=== PATIENT | male | born 1945 | race Caucasian/White ===

== ENCOUNTER → 2020-01-13 08:45 | Outpatient (BNVA) | payer OTHER, SELFPAY | PROVIDERS: PCP Internal Medicine; Referring Provider Internal Medicine; Visit Provider Nurse Practitioner Family | DX: Z76.89 Persons encountering health services in other specified circumstances (principal) ==

== ENCOUNTER → 2020-06-11 08:12 | Outpatient (REF) | payer OTHER, SELFPAY ==
--- NOTE | 2020-06-11 08:15 | CA_ITS ---
Transthoracic Echocardiogram Patient (Last, First, Middle): Douglas Amor, Gender: Male Date of : 1945 Age: 74 Procedure Date: 06/11/2020 Procedure Type: Transthoracic Echocardiogram Location: OP Height: 190.5 cm Weight: 106.6 kg BSA: 2.35 m2 Heart Rate: bpm BP: 145 / 86 mmHg Accounting Technician: DORINA Referring MD: Lori Bright TAFFY PULLEROleg Symptoms: I42.9 - Cardiomyopathy, unspecified Study Quality: Technically Difficult ECG Rhythm: Sinus, PVCs Conclusions: - Even with definity, difficult to assess LVEF or wall motion. Suspect LVEF about 50%. - No obvious valvular pathology seen on this study. - There is mild dilatation of the ascending aorta measuring 4.00 cm. Findings Left Ventricle Mildly increased left ventricular cavity size. There is mildly increased left ventricular wall thickness. The left ventricular systolic function is low normal. E/E prime ratio is <8, consistent with normal filling pressures. Evidence suggests grade I (mild) diastolic dysfunction. Even with definity, difficult to assess LVEF or wall motion. Suspect LVEF about 50%. No gross wall motion abnormality. Right Ventricle Normal right ventricular cavity size and systolic function. Atria Both atria are normal in size. Aortic Valve The aortic valve was not well visualized. There is no aortic valve stenosis. There is no aortic valve regurgitation. Mitral Valve The mitral valve appears normal. There is trace mitral valve regurgitation. There is no mitral valve stenosis. Pulmonic Valve The pulmonic valve was not well visualized. Tricuspid Valve There is trace tricuspid valve regurgitation. The pulmonary artery systolic pressure is normal. Great Vessels There is mild dilatation of the ascending aorta measuring 4.00 cm. Venous The inferior vena cava was not well visualized. Pericardium/Pleural There is no evidence of pericardial effusion. Recommendations, Care & Conclusions No obvious valvular pathology seen on this study. Measurements M-Mode Liner Measurements Normals - Women/Men AOV Cusps: 3.00 1.5-2.6 cm/m2 2D Linear Measurements IVSd: 1.08 0.6-0.9/0.6-1.0 cm LVIDd: 5.51 3.9-5.3/4.2-5.9 cm LVIDd Index: 2.34 2.4-3.2/2.2-3.1 cm/m2 LVIDs: 3.92 2.0-3.6 cm LVPWd: 1.05 0.7-1.1 cm Ao Root: 4.00 2.1-3.5 cm LA Diam: 4.30 2.7-3.8/3.0-4.0 cm LAIDs Index: 1.83 1.5-2.3 cm/m2 LV Mass: 289.81 67-162/88-224 g LV Mass Index: 123.32 43-95/49-115 g/m2 LVOT Diam: 2.50 3.0+(-)1.3 cm Mitral Valve MV Pk E: 0.53 MV PK A: 0.62 MV Decel Time: 292.00 E/A: 0.90 E'Lateral: 9.14 E'Medial: 5.98 E/E' Med: 8.80 E/E' Lat: 5.80 PHT: 86.00 MVA PHT: 2.56 Decel [place]: 1.81 Aortic Valve AoV Pk Chidi: 1.65 AoV Pk Grad: 11.00 LVOT LVOT Pk Chidi: 0.63 LVOT Mn Chidi: 0.47 LVOT VTI: 0.16 LVOT Pk Grad: 2.00 LVOT Mn Grad: 1.00 LVOT Diam: 2.50 LVOT Area: 4.91 Diastolic Function MV Pk E: 0.53 MV Pk A: 0.62 E/A: 0.90 E'Medial: 5.98 E/E' Med: 8.80 E' Laterial: 9.14 E/E' Lat: 5.80 Tricuspid Valve RA Press: 3.00 Great Vessels Aorta Ao Root-2D: 4.00 2.0-3.7 cm Ao Asc: 4.00 2.1-3.4 cm Ao Arch: 3.60 Pulmonary Valve PV Pk Chidi: 1.37 Peak PV Grad: 8.00 Updated in Other Vendor System with Status of Final Keegan Harris MD electronically signed on 06/13/2020 12:04:03 PM with status of Final
== END ==
LOC: HO.CARD 08:12
PROVIDERS: Visit Provider Nurse Practitioner Family
DX: I42.9 Cardiomyopathy, unspecified (principal)
CPT/HCPCS: 93306; Q9957

== ENCOUNTER 2020-08-04 08:52 | Outpatient (REF) | payer OTHER, SELFPAY ==
--- NOTE | ~2020-08-04 | XR_ITS ---
EXAMINATION: XR CHEST CLINICAL INFORMATION: Dyspnea COMPARISON: Previous chest x-ray October 2018 TECHNIQUE: 2 views of the chest were obtained. FINDINGS: The cardiac and mediastinal contours are stable. The lung volumes are low. The lungs are clear. There is no pleural effusion or pneumothorax. There are degenerative changes of the thoracic spine and increased kyphosis. XR/XR chest 2V IMPRESSION: No evidence for acute disease in the chest.
== END 2020-08-04 08:53 | disposition home or self-care (01) ==
LOC: HO.XRAY 08:52
PROVIDERS: PCP Internal Medicine; Visit Provider Hospitalist
DX: J41.0 Simple chronic bronchitis (principal); I48.91 Unspecified atrial fibrillation; I42.9 Cardiomyopathy, unspecified
CPT/HCPCS: 71046

== ENCOUNTER → 2020-08-11 09:28 | Outpatient (BNVA) | payer OTHER, SELFPAY | PROVIDERS: PCP Internal Medicine; Visit Provider Internal Medicine Cardiovascular Disease | DX: I42.9 Cardiomyopathy, unspecified (principal); I48.0 Paroxysmal atrial fibrillation | CPT/HCPCS: 93005 ==

== ENCOUNTER 2020-08-13 10:12 | Outpatient (REF) | payer OTHER, SELFPAY | END 2020-08-13 10:13 | disposition home or self-care (01) | LOC: HO.RESP 10:12 | PROVIDERS: PCP Internal Medicine; Visit Provider Hospitalist | DX: R06.00 Dyspnea, unspecified (principal) | CPT/HCPCS: 94060; 94727; 94729 ==

== ENCOUNTER 2020-09-17 09:38 | Outpatient (REF) | payer OTHER, SELFPAY ==
[2020-09-17 11:32] LABS: MANUAL DIFF FLAG NO
[2020-09-17 11:37] LABS: Basophils Percent Auto 0.5 % (0-2); Eosinophils Absolute Auto 0.1 X10*3/uL (0.0-0.4); Eosinophils Percent Auto 1.5 % (0-4); Hematocrit 45.1 % (42-52); Hemoglobin 14.7 g/dl (14.0-18.0); Imm Gran Abs Auto 0.03 X10*3/uL (0.00-0.03); Imm Gran Pct Auto 0.3 % (0.0-0.4); Lymphocytes Absolute Auto 2.5 X10*3/uL (1.2-4.9); Mean Corpuscular HGB Conc 32.6 g/dl (31.0-36.0); Mean Corpuscular Hemoglobin 32.3 pg (27.0-33.0); Mean Corpuscular Volume 99.1 fL (80-98); Mean Platelet Volume 11.6 fL (9.4-12.4); Monocytes Absolute Auto 0.8 X10*3/uL (0.1-1.2); Monocytes Percent Auto 9.8 % (2-11); Neutrophils Absolute Auto 5.1 X10*3/uL (2.0-8.3); Neutrophils Percent Auto 58.9 % (45-73); Platelet Count 200 X10*3/uL (160-400); Red Blood Count 4.55 X10*6/uL (4.60-5.80); Red Cell Distribution Width 13.3 % (11.0-16.0); White Blood Count 8.6 X10*3/uL (4.8-10.8)
[2020-09-17 12:32] LABS: Alanine Aminotransferase 18 U/L (0-40); Albumin Level 4.1 g/dL (3.5-5.0); Alkaline Phosphatase 94 U/L (39-117); Anion Gap 11 (12-20); Aspartate Amino Transferase 17 U/L (5-37); Bilirubin Direct 0.2 mg/dL (0.0-0.5); Bilirubin Total 0.5 mg/dL (0.0-1.0); Blood Urea Nitrogen 21 mg/dL (9-16); Calcium 10.3 mg/dL (8.4-10.2); Carbon Dioxide 25 mmol/L (22-29); Chloride 107 mmol/L (96-108); Cholesterol 150 mg/dL; Estimated Glomerular Filt Rate 56; Glucose Random 93 mg/dL (60-115); HDL Cholesterol 36 mg/dL; LDL Cholesterol Calculated 81 mg/dl; Potassium 5.2 mmol/L (3.3-5.1); Sodium 138 mmol/L (135-145); Total Protein 6.7 g/dL (6.5-8.0); Triglycerides 165 mg/dL
[2020-09-17 12:33] LABS: TSH reflex Free T4 0.98 uIU/mL (0.32-4.0)
[2020-09-17 12:50] LABS: Erythrocyte Sedimentation Rate 5 MM/HR (0-15)
== END 2020-09-17 09:39 | disposition home or self-care (01) ==
LOC: HO.LAB 09:38
PROVIDERS: Absent Provider Nurse Practitioner Family; Visit Provider Hospitalist
DX: J41.0 Simple chronic bronchitis (principal); R06.00 Dyspnea, unspecified; I48.0 Paroxysmal atrial fibrillation; I42.9 Cardiomyopathy, unspecified; Z79.899 Other long term (current) drug therapy; Z77.22 Contact with and (suspected) exposure to environmental tobacco smoke (acute) (chronic)
CPT/HCPCS: 36415; 80053; 80061; 80076; 82248; 84443; 85025; 85652

== ENCOUNTER → 2021-03-09 13:14 | Outpatient (BNVA) | payer OTHER, SELFPAY | PROVIDERS: PCP Internal Medicine; Visit Provider Internal Medicine Cardiovascular Disease | DX: I42.9 Cardiomyopathy, unspecified (principal); I48.0 Paroxysmal atrial fibrillation; J44.9 Chronic obstructive pulmonary disease, unspecified; R06.00 Dyspnea, unspecified; I44.0 Atrioventricular block, first degree; I49.3 Ventricular premature depolarization; M95.4 Acquired deformity of chest and rib; J30.1 Allergic rhinitis due to pollen; Z98.890 Other specified postprocedural states; Z79.899 Other long term (current) drug therapy | CPT/HCPCS: 93005 ==

== ENCOUNTER 2021-03-09 13:43 | Outpatient (REF) | payer OTHER, SELFPAY ==
[2021-03-09 14:45] LABS: Anion Gap 12 (12-20); Blood Urea Nitrogen 24 mg/dL (9-16); Calcium 10.4 mg/dL (8.4-10.2); Carbon Dioxide 23 mmol/L (22-29); Chloride 111 mmol/L (96-108); Estimated Glomerular Filt Rate 28; Glucose Random 94 mg/dL (60-115); Potassium 4.9 mmol/L (3.3-5.1); Sodium 141 mmol/L (135-145)
== END 2021-03-09 13:44 | disposition home or self-care (01) ==
LOC: HO.LAB 13:43
PROVIDERS: PCP Internal Medicine; Visit Provider Internal Medicine Cardiovascular Disease
DX: I42.9 Cardiomyopathy, unspecified (principal)
CPT/HCPCS: 36415; 80048

== ENCOUNTER 2021-03-15 09:22 | Outpatient (REF) | payer OTHER, SELFPAY ==
[2021-03-15 10:19] LABS: Anion Gap 11 (12-20); Blood Urea Nitrogen 24 mg/dL (9-16); Calcium 10.4 mg/dL (8.4-10.2); Carbon Dioxide 26 mmol/L (22-29); Chloride 110 mmol/L (96-108); Estimated Glomerular Filt Rate 50; Glucose Random 106 mg/dL (60-115); Potassium 4.9 mmol/L (3.3-5.1); Sodium 142 mmol/L (135-145)
== END 2021-03-15 09:23 | disposition home or self-care (01) ==
LOC: HO.LAB 09:22
PROVIDERS: PCP Internal Medicine; Visit Provider Internal Medicine Cardiovascular Disease
DX: I48.0 Paroxysmal atrial fibrillation (principal)
CPT/HCPCS: 36415; 80048

== ENCOUNTER → 2021-06-17 09:16 | Outpatient (BNVA) | payer OTHER, SELFPAY | PROVIDERS: PCP Internal Medicine; Visit Provider Hospitalist | DX: R06.00 Dyspnea, unspecified (principal); J45.909 Unspecified asthma, uncomplicated; J41.0 Simple chronic bronchitis; I48.0 Paroxysmal atrial fibrillation ==

== ENCOUNTER → 2021-07-13 07:37 | Outpatient (REF) | payer OTHER, SELFPAY ==
--- NOTE | 2021-07-13 07:41 | HM_ITS ---
Conclusion: 1. Patient was monitored for total period of 2 days and 21 hours 2. Baseline rhythm is atrial fibrillation with average heart of 89 beats per minute 3. Frequent episodes of short runs of wide complex rhythm, longus 8 beats 4. Total of 37,733 PVCs of 2 different morphology consistent with 10.08% total burden account for frequent PVCs 5. No significant pauses or bradycardia 6. Patient reported symptom correlated with AFib with PVC MTDD
--- NOTE | 2021-07-13 07:41 | CA_ITS ---
Transthoracic Echocardiogram Patient (Last, First, Middle): Douglas Amor, Gender: Male Date of : 1945 Age: 76 Procedure Date: 07/13/2021 Procedure Type: Transthoracic Echocardiogram Location: OP Height: 190.5 cm Weight: 111.13 kg BSA: 2.39 m2 Heart Rate: bpm BP: 117 / 78 mmHg Pullboat Engineer: NAHEED Referring MD: Vineet Massey MD Supervisor Pastry: Vineet Massey MD Symptoms: I42.9 - Cardiomyopathy, unspecified Study Quality: Technically Difficult/contrast ECG Rhythm: Atrial Fibrillation Conclusions: - 1. Low normal LV systolic function with LVEF of 50-55% 2. Normal cardiac valvular Doppler with limited visualization of cardiac valves 3. Mildly dilated ascending aorta 4. Normal RV systolic pressure Findings Procedure Information Contrast agent, definity, is being given per protocol without apparent complications. Left Ventricle Normal left ventricular cavity size. There is normal left ventricular wall thickness. The left ventricular systolic function is low normal. The visually estimated ejection fraction is between 50-55%. Right Ventricle Normal right ventricular cavity size. Atria The left atrium is moderately dilated. Interatrial shunt cannot be excluded. The right atrium was not well visualized. Aortic Valve The aortic valve was not well visualized. There is no aortic valve stenosis. There is no aortic valve regurgitation. Mitral Valve The mitral valve was not well visualized. There is trace mitral valve regurgitation. There is no mitral valve stenosis. Pulmonic Valve The pulmonic valve was not well visualized. Tricuspid Valve The tricuspid valve was not well visualized. There is trace tricuspid valve regurgitation. The right ventricular systolic pressure is normal. The right ventricular systolic pressure is 13 mmHg. Normal right atrial pressure. Great Vessels There is mild dilatation of the ascending aorta measuring 4.00 cm. Venous The inferior vena cava is normal in size. Pericardium/Pleural The pericardium was not well visualized. Prior Study Comparison No significant change compared to prior study dated: 06/11/2020. Measurements 2D Linear Measurements IVSd: 1.05 0.6-0.9/0.6-1.0 cm LVIDd: 5.62 3.9-5.3/4.2-5.9 cm LVIDd Index: 2.35 2.4-3.2/2.2-3.1 cm/m2 LVIDs: 4.45 2.0-3.6 cm LVPWd: 1.07 0.7-1.1 cm LA Diam: 3.80 2.7-3.8/3.0-4.0 cm LAIDs Index: 1.59 1.5-2.3 cm/m2 LV Mass: 297.63 67-162/88-224 g LV Mass Index: 124.53 43-95/49-115 g/m2 LVOT Diam: 2.50 3.0+(-)1.3 cm 2D Systolic Function EF 4C: 52.70 >55% EF 2C: 45.90 >55% EF BiP: 52.80 >55% Mitral Valve MV Pk E: 0.76 MV Decel Time: 178.00 E'Lateral: 14.80 E'Medial: 8.05 E/E' Med: 9.40 E/E' Lat: 5.10 PHT: 52.00 MVA PHT: 4.23 Decel [place]: 4.26 Aortic Valve AoV Pk Chidi: 1.48 AoV Mn Chidi: 1.12 AoV VTI: 0.32 AoV Pk Grad: 9.00 Aov Mn Grad: 6.00 DARIEL Cont.VTI: 2.13 LVOT LVOT Pk Chidi: 0.67 LVOT Mn Chidi: 0.49 LVOT VTI: 0.14 LVOT Pk Grad: 2.00 LVOT Mn Grad: 1.00 LVOT Diam: 2.50 LVOT Area: 4.91 Diastolic Function MV Pk E: 0.76 E'Medial: 8.05 E/E' Med: 9.40 E' Laterial: 14.80 E/E' Lat: 5.10 Right Ventricle TAPSE (mm): 11.30 TVS' Chidi: 9.46 Tricuspid Valve TR Pk Chidi: 1.57 TR Pk Grad: 10.00 RA Press: 3.00 RVSP: 13.00 Great Vessels Aorta Sinus of Valsalva: 4.28 2.0-3.[address] [place]: 3.58 1.7-3.4 cm Ao Asc: 4.00 2.1-3.4 cm Ao Arch: 3.60 Updated in Other Vendor System with Status of Final Vineet Massey MD electronically signed on 07/14/2021 5:19:20 PM with status of Final
== END ==
LOC: HO.CARD 07:37
PROVIDERS: Visit Provider Internal Medicine Cardiovascular Disease
DX: I42.9 Cardiomyopathy, unspecified (principal); I48.0 Paroxysmal atrial fibrillation; R06.00 Dyspnea, unspecified
CPT/HCPCS: 93242; 93306; Q9957

== ENCOUNTER → 2021-08-10 08:53 | Outpatient (BNVA) | payer OTHER, SELFPAY | PROVIDERS: PCP Internal Medicine; Visit Provider Internal Medicine Cardiovascular Disease | DX: I48.19 Other persistent atrial fibrillation (principal); I42.9 Cardiomyopathy, unspecified | CPT/HCPCS: 93005 ==

== ENCOUNTER 2021-08-18 12:53 | Day surgery (SDC) | payer OTHER, SELFPAY ==
--- NOTE | 2021-08-17 10:47 | HO.ANESPROP2 ---
Documented by User: Verena Taveras NP 08/17/21 10:50 HPI - Anesthesia Eval Consult details Narrative: 76yo M for Cardioversion Xarelto for afib PMFSH Active Problems Active Problems: All Active Problems (Updated 08/10/21 @ 09:28 by Vineet Massey MD) Persistent atrial fibrillation (Acute) JOSE M (obstructive sleep apnea) (Acute) Hyperkalemia (Acute) COPD (chronic obstructive pulmonary disease) (Acute) Dyspnea (Acute) Cardiomyopathy (Acute) PAF (paroxysmal atrial fibrillation) (Acute) Past Medical History Medical History Cardiomyopathy COPD (chronic obstructive pulmonary disease) Dyspnea JOSE M (obstructive sleep apnea) PAF (paroxysmal atrial fibrillation) Family History Family History Father No problems noted. Mother No problems noted. Brother Sudden cardiac Surgical History Surgical History Hx of cardiac cath Hx of knee surgery Social History Social History Patient Tobacco Use Status: Never used Tobacco Use of substances other than those prescribed or required for medical reasons: No Are you DNR?: No Advance Directives: No Advance Directives Information Provided: Yes Meds Allergies Allergy/AdvReac Type Severity Reaction Status Date / Time HAYFEVER Allergy Severe RUNNY Uncoded 08/18/21 13:00 NOSE,COUGH Home Medications Medication Instructions Recorded Confirmed Last Taken Type rivaroxaban 20 mg tablet 20 mg PO DAILY tab 06/17/21 08/10/21 Unknown History Exam Exam Date and Time: August 17, 2021 1047 Pertinent Lab Results Pertinent Lab Results: Laboratory Tests 09/17/20 03/15/21 10:52 09:30 WBC 8.6 Hgb 14.7 Hct 45.1 Plt Count 200 Sodium 142 Potassium 4.9 Chloride 110 H Carbon Dioxide 26 BUN 24 H Creatinine 1.40 Narrative Narrative: EKG 08/2021 atrial fibrillation with frequent PVCs with Q-waves in lead 3 ECHO 07/2021 Conclusions: - 1. Low normal LV systolic function with LVEF of 50-55% ? 2.? Normal cardiac valvular Doppler with limited visualization of cardiac valves ? 3. Mildly dilated ascending aorta? 4.? Normal RV systolic pressure? ?? Assessment and Plan Assessment Anesthesia Assessment: Chart Reviewed Documented by User: Monica Villaseñor MD 08/18/21 15:03 [facility] Past Medical History Medical History Cardiomyopathy COPD (chronic obstructive pulmonary disease) Dyspnea JOSE M (obstructive sleep apnea) PAF (paroxysmal atrial fibrillation) Family History Family History Father No problems noted. Mother No problems noted. Brother Sudden cardiac Family history of problems with anesthesia: No Surgical History Surgical History Hx of cardiac cath Hx of knee surgery History of Problems with Anesthesia: No Social History Social History Patient Tobacco Use Status: Never used Tobacco Use of substances other than those prescribed or required for medical reasons: No Are you DNR?: No Advance Directives: No Advance Directives Information Provided: Yes Meds Allergies Allergy/AdvReac Type Severity Reaction Status Date / Time HAYFEVER Allergy Severe RUNNY Uncoded 08/18/21 13:00 NOSE,COUGH Home Medications Medication Instructions Recorded Confirmed Last Taken Type rivaroxaban 20 mg tablet 20 mg PO DAILY tab 06/17/21 08/10/21 Unknown History Exam Airway Mallampati Class: II TM Dist: >3cm Neck ROM: Full Heart: irreg Lungs: cta Assessment and Plan Assessment Anesthesia Assessment: Anesthesia Plan Discussed and Chart Reviewed Final Anesthetic Review Family History of Problems with Anesthesia: No History of Problems with Anesthesia: No NPO: Yes ASA Class: III Final Preanesthetic Review: No Changes in Pt Med Stat, Meds/Allgs Chart Reviewed and Consent Obtained/Reviewed Patient Risk: Intermediate Procedure Risk: Intermediate Anesthetic Plan Anesthetic Plan: MAC: Disposition: Standard PACU
[2021-08-18] VITALS (7 sets, daily range): BP systolic 101–124; BP diastolic 57–80; PULSE 62–72; RESP 12–19; TEMP 36.8–37; O2SAT 94–95; BMI 30.6
[2021-08-18] MEDS: Lactated Ringers 1,000 ML 50 ML IVCONT (13:30)
--- NOTE | 2021-08-18 14:09 | MHC.SHP ---
Pre-Procedural Eval Section A Date of Service: 08/18/21 The patient is an INPATIENT: No Changes since office visit: Yes Patient answered all questions; No Cold of Flu in the past 2 weeks, No New Medical Problems and No Changes in Medication The History & Physical has been completed within 30 days and I have reviewed it.: Yes Section B Chief Complaint: Paroxysmal atrial fibrillation Allergies: Allergies Allergy/AdvReac Type Severity Reaction Status Date / Time HAYFEVER Allergy Severe RUNNY Uncoded 08/18/21 13:00 NOSE,COUGH Plan I have reviewed the history and physical and performed a pertinent physical examination on my patient. No changes have occurred unless specified.
--- NOTE | 2021-08-18 15:16 | ECG_ITS ---
Test Reason : S/P CARDIOVERSION Blood Pressure : / mmHG Vent. Rate : 063 BPM Atrial Rate : 063 BPM P-R Int : 254 ms QRS Dur : 116 ms QT Int : 376 ms P-R-T Axes : 009 -21 -07 degrees QTc Int : 384 ms Sinus rhythm with 1st degree A-V block with occasional Premature ventricular complexes Inferior infarct (cited on or before 23-AUG-2018) Abnormal ECG When compared with ECG of 31-OCT-2018 14:26, Premature ventricular complexes are now Present Nonspecific T wave abnormality now evident in Lateral leads QT has shortened Referred By: Vineet Massey Electronically Signed By:VINEET MASSEY MD
--- NOTE | 2021-08-18 15:16 | HO.CARDIVERS ---
Cardioversion Procedure Note Cardioversion Date of Procedure: 08/18/2021 Ordering Provider: myself Performing Provider: myself Indication for Procedure: recurrent and persistent symptomatic atrial fibrillation Pre-Op Diagnosis: same Post-Op Diagnosis: sinus rhythm Performed with Transesophageal Echo: No History: see my office note Consent: Verbal and Written consent was obtained from the patient before starting and after confirming oral anticoagulation use. The patient was made aware of the risk of synchronized cardioversion including benefits, alternatives 2nd opinion Procedure: After consent obtained, cardioversion pads were attached AP configuration and the patient was sedated by the anesthesia team. Once adequate sedation achieved, patient was delivered 200 joules of biphasic synchronized energy in anteroposterior configuration Complications: none Impression: successful conversion to sinus rhythm Recommendations: 1. Reduce amiodarone to 200 mg daily 2. Continue full oral anticoagulation Xarelto 3. Follow up in the clinic after Holter monitor. 4. Routine post cardioversion EKG will be performed
== END 2021-08-18 16:20 | disposition home or self-care (01) ==
PROVIDERS: PCP Internal Medicine; Visit Provider Internal Medicine Cardiovascular Disease
PROC: 5A2204Z Restoration of Cardiac Rhythm, Single (ICD-10-PCS; principal; 2021-08-18 14:30)
DX: I48.19 Other persistent atrial fibrillation (principal); Z79.01 Long term (current) use of anticoagulants; I42.9 Cardiomyopathy, unspecified; J44.9 Chronic obstructive pulmonary disease, unspecified; R06.00 Dyspnea, unspecified; G47.33 Obstructive sleep apnea (adult) (pediatric); Z79.899 Other long term (current) drug therapy; Z79.51 Long term (current) use of inhaled steroids
CPT/HCPCS: 92960; 93005

== ENCOUNTER → 2021-09-03 11:00 | Outpatient (REF) | payer OTHER, SELFPAY ==
--- NOTE | 2021-09-03 11:03 | HM_ITS ---
Conclusion: 1. Patient was monitored for only 1 hour and 4 minutes 2. Baseline rhythm is atrial fibrillation with average heart of 89 beats per minute 3. Total of 181 PVCs accounting for 2.31% of total beats accounting for frequent PVCs 4. No patient reported events 5. Overall limited Holter due to the duration of the monitoring. MTDD
== END ==
LOC: HO.CARD 11:00
PROVIDERS: PCP Internal Medicine; Visit Provider Internal Medicine Cardiovascular Disease
DX: I48.19 Other persistent atrial fibrillation (principal)
CPT/HCPCS: 93242

== ENCOUNTER → 2021-09-21 08:56 | Outpatient (BNVA) | payer OTHER, SELFPAY | PROVIDERS: PCP Internal Medicine; Visit Provider Internal Medicine Cardiovascular Disease | DX: I48.19 Other persistent atrial fibrillation (principal); I42.9 Cardiomyopathy, unspecified | CPT/HCPCS: 93005 ==

== ENCOUNTER → 2021-09-22 12:49 | Outpatient (REF) | payer OTHER, SELFPAY | LOC: HO.SL 12:49 | PROVIDERS: Visit Provider Hospitalist | DX: G47.33 Obstructive sleep apnea (adult) (pediatric) (principal) | CPT/HCPCS: 95806 ==

== ENCOUNTER → 2022-01-18 08:12 | Outpatient (REF) | payer OTHER, SELFPAY ==
--- NOTE | 2022-01-18 08:15 | CA_ITS ---
Transthoracic Echocardiogram Patient (Last, First, Middle): Douglas Amor, Gender: Male Date of : 1945 Age: 76 Procedure Date: 01/18/2022 Procedure Type: Transthoracic Echocardiogram Location: OP Height: 190.5 cm Weight: 107.5 kg BSA: 2.36 m2 Heart Rate: 72 bpm BP: 130 / 80 mmHg Crozer: KIP Referring MD: Vineet Massey MD Symptoms: I48.19 - Other persistent atrial fibrillation Study Quality: Technically Difficult/Contrast ECG Rhythm: Atrial Fibrillation Conclusions: - The left ventricular systolic function is severely decreased. The visually estimated ejection fraction is between 25-30%. Findings Procedure Information Contrast agent, definity, is being given per protocol without apparent complications. Left Ventricle Normal left ventricular cavity size. The left ventricular systolic function is severely decreased. The visually estimated ejection fraction is between 25-30%. Even with contrast, difficult to assess wall motion. Prior Study Comparison Changes noted compared to prior study dated: 07/13/2021. Decrease in LVEF. Measurements 2D Linear Measurements IVSd: 1.32 0.6-0.9/0.6-1.0 cm LVIDd: 4.39 3.9-5.3/4.2-5.9 cm LVIDd Index: 1.86 2.4-3.2/2.2-3.1 cm/m2 LVIDs: 3.16 2.0-3.6 cm LVPWd: 1.14 0.7-1.1 cm LA Diam: 4.30 2.7-3.8/3.0-4.0 cm LAIDs Index: 1.82 1.5-2.3 cm/m2 LV Mass: 246.29 67-162/88-224 g LV Mass Index: 104.36 43-95/49-115 g/m2 LVOT Diam: 2.50 3.0+(-)1.3 cm 2D Systolic Function EF 4C: 45.80 >55% EF 2C: 26.90 >55% EF BiP: 41.10 >55% Aortic Valve AoV Pk Chidi: 1.04 AoV Mn Chidi: 0.81 AoV VTI: 0.20 AoV Pk Grad: 4.00 Aov Mn Grad: 3.00 DARIEL Cont.VTI: 2.32 LVOT LVOT Pk Chidi: 0.50 LVOT Mn Chidi: 0.37 LVOT VTI: 0.09 LVOT Pk Grad: 1.00 LVOT Mn Grad: 1.00 LVOT Diam: 2.50 LVOT Area: 4.91 Great Vessels Aorta Sinus of Valsalva: 4.40 2.0-3.5 cm Ao Asc: 3.90 2.1-3.4 cm Pulmonary Valve PV Pk Chidi: 0.62 Peak PV Grad: 2.00 Updated in Other Vendor System with Status of Final Keegan Harris MD electronically signed on 01/18/2022 4:18:06 PM with status of Final
== END ==
LOC: HO.CARD 08:12
PROVIDERS: Visit Provider Internal Medicine Cardiovascular Disease
DX: I42.9 Cardiomyopathy, unspecified (principal); I48.19 Other persistent atrial fibrillation
CPT/HCPCS: 93308; Q9957

== ENCOUNTER → 2022-06-22 08:44 | Outpatient (BNVA) | payer OTHER, SELFPAY | PROVIDERS: PCP Internal Medicine; Referring Provider Internal Medicine; Visit Provider Internal Medicine Cardiovascular Disease | DX: Z13.89 Encounter for screening for other disorder (principal) ==

== ENCOUNTER 2022-08-01 09:36 | Outpatient (REF) | payer OTHER, SELFPAY | END 2022-08-01 09:37 | disposition home or self-care (01) | LOC: HO.LAB 09:36 | PROVIDERS: PCP Internal Medicine; Visit Provider Internal Medicine Cardiovascular Disease | DX: Z13.89 Encounter for screening for other disorder (principal) | CPT/HCPCS: 36415; 80048 ==

== ENCOUNTER → 2022-12-13 08:04 | Outpatient (REF) | payer OTHER, SELFPAY ==
--- NOTE | 2022-12-13 08:08 | CA_ITS ---
Transthoracic Echocardiogram Patient (Last, First, Middle): Douglas Amor, Gender: Male Date of : 1945 Age: 77 Procedure Date: 12/13/2022 Procedure Type: Transthoracic Echocardiogram Location: OP Height: 187.96 cm Weight: 108.86 kg BSA: 2.35 m2 Heart Rate: bpm BP: 134 / 80 mmHg Director Sales Training: PITO Referring MD: Vineet Massey MD Sales Representative: Vineet Massey MD Symptoms: I42.9 - Cardiomyopathy, unspecified Study Quality: Technically Difficult ECG Rhythm: Atrial Fibrillation Conclusions: - 1. Technically limited study despite use of contrast agent 2. LV systolic function is difficult to assess but overall appears to be moderately reduced in the range of 35-40% with mild LVH 3. At least moderately dilated left atrium 4. Limited visualization of cardiac valves with normal cardiac valvular Dopplers 5. Normal RV systolic pressure 6. Mildly dilated ascending aorta Findings Left Ventricle The left ventricle was not well visualized. Normal left ventricular cavity size. There is mildly increased left ventricular wall thickness. The left ventricular systolic function is moderately decreased. Diastolic function is indeterminate on the basis of available data. Right Ventricle Normal right ventricular cavity size. Atria The left atrium is moderately dilated. Interatrial shunt cannot be excluded. The right atrium was not well visualized. Aortic Valve The aortic valve was not well visualized. There is no aortic valve stenosis. There is no aortic valve regurgitation. Mitral Valve The mitral valve was not well visualized. There is trace mitral valve regurgitation. There is no mitral valve stenosis. Pulmonic Valve The pulmonic valve was not well visualized. Tricuspid Valve Likely normal tricuspid valve structure and function. There is trace tricuspid valve regurgitation. The right ventricular systolic pressure is normal. The right ventricular systolic pressure is 18 mmHg. There is no evidence of pulmonary hypertension. Great Vessels The pulmonary artery was not well visualized. There is mild dilatation of the ascending aorta measuring 4.10 cm. Venous The inferior vena cava is normal in size and collapses greater than 50% with inspiration. Pericardium/Pleural The pericardium was not well visualized. Prior Study Comparison Changes noted compared to prior study dated: 01/18/2022. LV systolic function has improved Measurements 2D Linear Measurements IVSd: 1.56 0.6-0.9/0.6-1.0 cm LVIDd: 4.16 3.9-5.3/4.2-5.9 cm LVIDd Index: 1.77 2.4-3.2/2.2-3.1 cm/m2 LVIDs: 3.06 2.0-3.6 cm LVPWd: 1.56 0.7-1.1 cm Ao Root: 4.20 2.1-3.5 cm LA Diam: 4.20 2.7-3.8/3.0-4.0 cm LAIDs Index: 1.79 1.5-2.3 cm/m2 LV Mass: 326.39 67-162/88-224 g LV Mass Index: 138.89 43-95/49-115 g/m2 LVOT Diam: 2.30 3.0+(-)1.3 cm 2D Systolic Function EF 4C: 33.00 >55% EF 2C: 41.60 >55% EF BiP: 39.10 >55% Mitral Valve MV Pk E: 0.56 MV Decel Time: 216.00 E'Lateral: 7.29 E/E' Lat: 7.70 PHT: 63.00 MVA PHT: 3.49 Decel [place]: 2.60 Aortic Valve AoV Pk Chidi: 1.23 AoV Mn Chidi: 0.84 AoV VTI: 0.27 AoV Pk Grad: 6.00 Aov Mn Grad: 3.00 DARIEL Cont.VTI: 1.80 LVOT LVOT Pk Chidi: 0.57 LVOT Mn Chidi: 0.37 LVOT VTI: 0.12 LVOT Pk Grad: 1.00 LVOT Mn Grad: 1.00 LVOT Diam: 2.30 LVOT Area: 4.15 Diastolic Function MV Pk E: 0.56 E' Laterial: 7.29 E/E' Lat: 7.70 Right Ventricle TAPSE (mm): 17.00 TVS' Chidi: 7.00 Tricuspid Valve TR Pk Chidi: 1.92 TR Pk Grad: 15.00 RA Press: 3.00 RVSP: 18.00 Great Vessels Aorta Ao Root-2D: 4.20 2.0-3.7 cm Ao Asc: 4.10 2.1-3.4 cm Pulmonary Valve PV Pk Chidi: 1.05 Peak PV Grad: 4.00 Updated in Other Vendor System with Status of Final Vineet Massey MD electronically signed on 12/13/2022 11:07:24 AM with status of Final
== END ==
LOC: HO.CARD 08:04
PROVIDERS: PCP Internal Medicine; Visit Provider Internal Medicine Cardiovascular Disease
DX: I42.9 Cardiomyopathy, unspecified (principal); I48.19 Other persistent atrial fibrillation
CPT/HCPCS: 93306; Q9957

== ENCOUNTER → 2022-12-13 08:08 | Outpatient (BNV) | payer OTHER, SELFPAY | PROVIDERS: PCP Internal Medicine; Visit Provider Internal Medicine Cardiovascular Disease | DX: I48.19 Other persistent atrial fibrillation (principal) | CPT/HCPCS: 93306 ==

== ENCOUNTER 2022-12-19 08:23 | Outpatient (AMB) | payer OTHER, SELFPAY ==
[2022-12-19 08:28] VITALS: BP 110/70; PULSE 84; BMI 30.6
--- NOTE | 2022-12-19 08:28 | MHC.OFFVIS ---
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 He denies any new cardiac complaints. Continues to have exertional shortness of breath. Denies any worsening. Denies any orthopnea, PND, leg edema. His recent echocardiogram shows improvement in LV ejection fraction. Uses CPAP and takes all his medications. Denies any palpitations, lightheadedness, syncope. Blood pressure generally in the systolic 117 range. Uses Spiriva which seems to help him better from his COPD perspective. No bleeding issues or neurologic events PFSH Medical History JOSE M (obstructive sleep apnea) COPD (chronic obstructive pulmonary disease) Dyspnea Cardiomyopathy PAF (paroxysmal atrial fibrillation) Surgical History Hx of knee surgery Hx of cardiac cath Family History Father No problems noted. Mother No problems noted. Brother Sudden cardiac Social History Patient Tobacco Use Status: Never used Tobacco Review of Systems Const Denies chills, Denies fatigue, Denies fever(s), Denies frequent falls, Denies weakness, Denies weight gain and Denies weight loss ENT Denies dizziness Card Denies chest pain, Denies leg edema, Denies lightheadedness, Denies palpitations, Denies dyspnea, Denies dyspnea on exertion, Denies orthopnea and Denies other (loss of consciousness) Resp Denies cough, Denies dyspnea and Denies dyspnea on exertion GI Denies hematochezia and Denies change in stool character Musc Denies abnormal gait, Denies muscle weakness, Denies numbness, Denies radiating pain into limb and Denies tingling Neuro Denies abnormal gait, Denies dizziness, Denies frequent falls, Denies numbness, Denies tingling and Denies weakness Endo Denies fatigue and Denies palpitations Physical Exam Vital Signs: Last Vital Signs Pulse 84 12/19/22 08:28 BP 110/70 12/19/22 08:28 BMI result Body Mass Index 30.6 Const General: cooperative, comfortable, no acute distress, alert, awake and Physically active Nutritional Appearance: obese Orientation/consciousness: patient oriented x3 Limitations: no limitations Neck Neck: Yes trachea midline, Yes supple and Yes no JVD Resp Effort & Inspection: normal respiratory effort Auscultation: diminished lung sounds Cardio Jugular venous distension: no JVD Palpation: normal PMI Rate: regular rate Rhythm: abnormal rhythm with ectopic beats Heart sounds: S1 normal heart sound present and S2 normal heart sound present GI Auscultation: normal bowel sounds Skin General skin exam: no rashes or lesions noted Neuro General: patient oriented x3 and no focal motor deficits Extrem General: Yes no clubbing, cyanosis or edema Psych Appearance: grossly normal Office Procedures EKG Details: EKG shows atrial fibrillation with PVCs with no acute ST wave changes [id number], Complete Assessment & Plan Assessment & Plan (1) Cardiomyopathy: Code(s): I42.9 - Cardiomyopathy, unspecified Qualifiers: Cardiomyopathy type: unspecified Qualified Code(s): I42.9 - Cardiomyopathy, unspecified Plan: Cardiomyopathy which is nonischemic and most likely familial and/or related to atrial fibrillation. Clinically doing well without any signs or symptoms of heart failure. Importance of neurohormonal modulation was discussed. Will check renal function today and is stable will further uptitrate Entresto as tolerated. Continue monitor blood pressure at home. Continue metoprolol therapy. Signs and symptoms of heart failure discussed importance of regular physical activity and aerobic conditioning was discussed with him. Continue COPD management. Continue CPAP therapy. Continue participate in weight loss program. He understands management. (2) Persistent atrial fibrillation: Code(s): I48.19 - Other persistent atrial fibrillation Plan: Persistent rate control atrial fibrillation again familial. Has failed rhythm control approach. Will continue rate control with metoprolol. Continue full oral anticoagulation with Xarelto. Semi annual renal function test should be pursued. Continue CPAP therapy. Will follow up in the clinic in 6 months time, sooner p.r.n.. Thank you for allowing me to partake in his care Orders: Orders Basic Metabolic Panel Today I48.19 - Other persistent atrial fibrillation Coding Level of Care Code Est Pt Level 4 (59681) Diagnoses Cardiomyopathy, unspecified type I42.9 Cardiomyopathy type: unspecified Persistent atrial fibrillation I48.19 CPT Codes EKG - CPT: 36850-[id number], Complete ([id number])
== END 2022-12-19 08:44 | disposition home or self-care (01) ==
PROVIDERS: PCP Internal Medicine; Referring Provider Internal Medicine; Visit Provider Internal Medicine Cardiovascular Disease
DX: I42.9 Cardiomyopathy, unspecified (principal); I48.19 Other persistent atrial fibrillation
CPT/HCPCS: 93010; 99214

== ENCOUNTER 2022-12-19 08:23 | Outpatient (REF) | payer OTHER, SELFPAY ==
[2022-12-19 11:43] LABS: Anion Gap 11 (12-20); Blood Urea Nitrogen 18 mg/dL (9-16); Calcium 10.5 mg/dL (8.4-10.2); Carbon Dioxide 25 mmol/L (22-29); Chloride 111 mmol/L (96-108); Estimated Glomerular Filt Rate > 60; Glucose Random 80 mg/dL (60-115); Potassium 4.6 mmol/L (3.3-5.1); Sodium 142 mmol/L (135-145)
== END 2022-12-19 08:24 | disposition home or self-care (01) ==
LOC: HO.LAB 08:23
PROVIDERS: PCP Internal Medicine; Referring Provider Internal Medicine; Visit Provider Internal Medicine Cardiovascular Disease
DX: I42.9 Cardiomyopathy, unspecified (principal)
CPT/HCPCS: 36415; 80048; 93005

== ENCOUNTER 2022-12-30 09:28 | Outpatient (AMB) | payer OTHER, SELFPAY ==
[2022-12-30 09:32] VITALS: BP 118/70; PULSE 69; O2SAT 95
--- NOTE | 2022-12-30 09:32 | MHC.OFFVIS ---
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 The symptoms have progressively gotten worse. He was evaluated by Cardiology and felt to be stable from a cardiac standpoint. Therefore the patient is referred to Pulmonary. Apparently back around 3 or more years ago the patient did undergo pulmonary function studies at [facility] which I personally reviewed demonstrating a mild degree of COPD. He feels that his symptoms have gotten worse from then in would be surprised if he has worsening COPD. He has been a lifelong nonsmoker. 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 He also has mold in the basement although he does not feel that does bothering him. He denies any other exposures to any fumes or toxins at this time. He has been on amiodarone now for some time due to his cardiac history. He has been on a small dose and denies any liver disease or any thyroid dysfunction. The patient denies any significant cough at this time. At this point will try to start a bronchodilator that will not affect his cardiac status. Therefore long-acting muscarinic antagonist may be a good option. The patient will have repeat PFTs and chest x-ray in with follow-up after that. 06/17/2021 the patient is here for pulmonary follow-up visit. The patient has been doing well from a respiratory status. He continues uses Incruse with good effect. He has may complaining of a dry mouth. He also states that he does have daytime drowsiness. His [place] score is elevated 9/24. He does take a nap in the afternoon. The patient denies any headaches. He did have a sleep study back in 2014 that was personally by me demonstrating mild sleep apnea. The patient has a cardiomyopathy and also atrial fibrillation. Now he is more symptomatic after weight gain. Therefore he likely has worsening sleep apnea. Will have to re-evaluate that. In the meantime the dryness of the mouth may be due to the Incruse. But, he needs to start rinsing his mouth after using his inhaler. 11/02/2021 the patient is here for a pulmonary follow-up visit. The patient has been going in and out of atrial fibrillation. He did have follow-up with electrophysiology and they discussed the possibility of an ablation. The opted on not having an ablation at this time. He is also off the amiodarone. Denies any significant palpitations or shortness of breath. Still having issues with daytime drowsiness. With an [place] score of 10/24. He did undergo sleep study demonstrating [id number] sleep apnea with an AHI of 12.5 events an hour. The patient also has hypoxic with a pulse ox less than 88% for more than 15 minutes. We talked about his underlying cardiomyopathy and atrial fibrillation the patient is agreeable to starting CPAP therapy at this time. Will send a prescription to a local [employer] company in order for him to be set up. He continues with respiratory therapy with good effect. Has not required any prednisone or any rescue therapy. Overall he is doing well. 03/09/2022 the patient is here for a pulmonary follow-up visit. Overall the patient has been doing well. He does have underlying COPD and has been using his Incruse with good effect. At some point he forgot it when he went on vacation notice that his breathing got worse. Therefore now he realizes that he needs to continue using. In meantime he has struggle with CPAP. He has tried multiple masks and try to go back to using it. However, after 3 months he has realized that he is not going to be able to tolerated. Therefore he is going to return to the [employer] company. From a cardiac standpoint the patient is doing well he does have underlying atrial fibrillation cardiomyopathy. He has been monitor closely. He understands that the CPAP therapy will be helping minimize some of the cardiovascular risks. As an alternative, we did talk about positional therapy. The patient can also consider a dental device. Otherwise patient is without any other complaints. 12/30/2022 the patient is here for a pulmonary follow-up visit. The patient overall is doing about the same. His cough is better. He feels the Spiriva works better than the Incruse. Therefore he will continue the Spiriva at this time. He does not use a rescue inhaler. The patient does have atrial fibrillation so we do try to minimize the beta agonist effect. The patient has been sleeping fairly well. He denies any significant daytime drowsiness. The patient does have a history of sleep apnea. He struggle with CPAP for a long time. We did do an overnight oximetry at some point last year which actually demonstrated that he desaturated down to 78% and spent 20 minutes below 88%. Explained to the patient that if he continues to desaturate it will be increased risk for his cardiovascular condition. Therefore will do the overnight study again. If he does desaturate significantly I will emphasized the need for oxygen supplementation. The patient was supposed to have a chest x-ray. Although he did have it done. Therefore output another x-ray ordered for next year unless he does not feel well he can not have an x-ray done at any point as the order is active at this time. FORMERLY [facility], [facility]1983 Medical History JOSE M (obstructive sleep apnea) COPD (chronic obstructive pulmonary disease) Dyspnea Cardiomyopathy PAF (paroxysmal atrial fibrillation) Surgical History Hx of knee surgery Hx of cardiac cath Family History Father No problems noted. Mother No problems noted. Brother Sudden cardiac Social History Patient Tobacco Use Status: Never used Tobacco Review of Systems Const Denies chills, Denies fatigue, Denies fever(s), Denies frequent falls, Denies snoring, Denies weakness and Denies weight loss ENT Denies dizziness Card Denies chest pain, Denies leg edema, Denies lightheadedness, Denies palpitations, Denies dyspnea, Denies dyspnea on exertion and Denies orthopnea Resp Denies cough, Denies dyspnea, Denies dyspnea on exertion and Denies snoring GI Denies hematochezia and Denies change in stool character Musc Denies abnormal gait, Denies muscle weakness, Denies numbness, Denies radiating pain into limb and Denies tingling Neuro Denies abnormal gait, Denies dizziness, Denies frequent falls, Denies numbness, Denies tingling and Denies weakness Endo Denies fatigue and Denies palpitations Physical Exam Vital Signs: Last Vital Signs Pulse 69 12/30/22 09:32 BP 118/70 12/30/22 09:32 Pulse Ox 95 12/30/22 09:32 Oxygen Delivery Method Room Air 12/30/22 09:32 BMI result Body Mass Index 30.0 Const General: cooperative, comfortable, no acute distress, alert, awake and Physically active Nutritional Appearance: obese Orientation/consciousness: patient oriented x3 Limitations: no limitations Neck Neck: Yes supple and Yes no JVD Chest Chest palpation & inspection: normal inspection of the chest Resp Effort & Inspection: normal respiratory effort Auscultation: diminished lung sounds Cardio Rate: regular rate Rhythm: abnormal rhythm with ectopic beats Heart sounds: S1 normal heart sound present and S2 normal heart sound present GI Palpation (GI): Soft to palpation Auscultation: normal bowel sounds Skin General skin exam: no rashes or lesions noted Neuro General: patient oriented x3 Extrem General: Yes no clubbing, cyanosis or edema Psych Appearance: grossly normal Assessment & Plan Assessment & Plan (1) COPD (chronic obstructive pulmonary disease): Code(s): J44.9 - Chronic obstructive pulmonary disease, unspecified Qualifiers: COPD type: chronic bronchitis Chronic bronchitis type: simple Qualified Code(s): J41.0 - Simple chronic bronchitis (2) Dyspnea: Code(s): R06.00 - Dyspnea, unspecified Qualifiers: Dyspnea type: dyspnea on exertion Qualified Code(s): R06.00 - Dyspnea, unspecified (3) Cardiomyopathy: Code(s): I42.9 - Cardiomyopathy, unspecified Qualifiers: Cardiomyopathy type: unspecified Qualified Code(s): I42.9 - Cardiomyopathy, unspecified Plan stopped Incruse. continue Spiriva handihaler daily, ok to decrease to every 48 hours requesting Overnight oximetry on room air, may benefit from oxygen supplementation Weight management Increase exercise chest x-ray F/U 6 months Orders: Orders XR chest 2V 12/30/22 J44.9 - Chronic obstructive pulmonary disease, unspecified Overnight Pulse Oximetry 12/30/22 J44.9 - Chronic obstructive pulmonary disease, unspecified Medications: Refilled tiotropium bromide (Spiriva with HandiHaler) puncture 1 cap using device; one dose = 2 inhalations 1 cap inhalation DAILY 30 days 30 inhalations 11RF Coding Level of Care Code Est Pt Level 4 (88879) Diagnoses Simple chronic bronchitis J41.0 COPD type: chronic bronchitis Chronic bronchitis type: simple Dyspnea on exertion R06.00 Dyspnea type: dyspnea on exertion Cardiomyopathy, unspecified type I42.9 Cardiomyopathy type: unspecified Time Spent (min) 17
== END 2022-12-30 09:53 | disposition home or self-care (01) ==
PROVIDERS: PCP Internal Medicine; Visit Provider Hospitalist
DX: J41.0 Simple chronic bronchitis (principal); R06.00 Dyspnea, unspecified; I42.9 Cardiomyopathy, unspecified
CPT/HCPCS: 99214

== ENCOUNTER → 2022-12-30 09:28 | Outpatient (BNVA) | payer OTHER, SELFPAY | PROVIDERS: PCP Internal Medicine; Visit Provider Hospitalist ==

== ENCOUNTER 2023-06-13 09:48 | Outpatient (REF) | payer OTHER, SELFPAY ==
[2023-06-13 11:06] LABS: Hematocrit 48.1 % (42.0-52.0); Hemoglobin 16.1 g/dl (14.0-18.0); Mean Corpuscular HGB Conc 33.5 g/dl (31.0-36.0); Mean Corpuscular Hemoglobin 31.9 pg (27.0-33.0); Mean Corpuscular Volume 95.4 fL (80.0-98.0); Mean Platelet Volume 11.9 fL (9.4-12.4); Platelet Count 203 X10*3/uL (160-400); Red Blood Count 5.04 X10*6/uL (4.60-5.80); Red Cell Distribution Width 13.1 % (11.0-16.0); White Blood Count 8.8 X10*3/uL (4.8-10.8)
[2023-06-13 11:36] LABS: Anion Gap 11 (12-20); Blood Urea Nitrogen 19 mg/dL (9-16); Calcium 10.4 mg/dL (8.4-10.2); Carbon Dioxide 28 mmol/L (22-29); Chloride 108 mmol/L (96-108); Estimated Glomerular Filt Rate 54; Glucose Random 93 mg/dL (60-115); Potassium 4.7 mmol/L (3.3-5.1); Sodium 142 mmol/L (135-145)
== END 2023-06-13 09:49 | disposition home or self-care (01) ==
LOC: HO.LAB 09:48
PROVIDERS: PCP Internal Medicine; Visit Provider Internal Medicine Cardiovascular Disease
DX: I42.9 Cardiomyopathy, unspecified (principal); I48.19 Other persistent atrial fibrillation
CPT/HCPCS: 36415; 80048; 85027

== ENCOUNTER 2023-06-13 09:48 | Outpatient (AMB) | payer OTHER, SELFPAY ==
[2023-06-13 09:49] VITALS: BP 122/74; PULSE 84; BMI 31.7
--- NOTE | 2023-06-13 09:49 | MHC.OFFVIS ---
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 He said he has been getting slightly more short of breath. However he denies any orthopnea, PND, leg edema. Gradually gaining weight over the many years. He said he has been not as active over the winter. He denies any prolonged palpitation irregular heartbeat. Denies any exertional chest pain. No lightheadedness, syncope. No bleeding issues or neurologic events. Takes all his medications. [facility] Medical History JOSE M (obstructive sleep apnea) COPD (chronic obstructive pulmonary disease) Dyspnea Cardiomyopathy PAF (paroxysmal atrial fibrillation) Surgical History Hx of knee surgery Hx of cardiac cath Family History Father No problems noted. Mother No problems noted. Brother Sudden cardiac Social History Patient Tobacco Use Status: Never used Tobacco Review of Systems Const Denies chills, Denies fatigue, Denies fever(s), Denies frequent falls, Denies weakness, Denies weight gain and Denies weight loss ENT Denies dizziness Card Denies chest pain, Denies leg edema, Denies lightheadedness, Denies palpitations, Denies dyspnea, Denies dyspnea on exertion, Denies orthopnea and Denies other (loss of consciousness) Resp Denies cough, Denies dyspnea and Denies dyspnea on exertion GI Denies hematochezia and Denies change in stool character Musc Denies abnormal gait, Denies muscle weakness, Denies numbness, Denies radiating pain into limb and Denies tingling Neuro Denies abnormal gait, Denies dizziness, Denies frequent falls, Denies numbness, Denies tingling and Denies weakness Endo Denies fatigue and Denies palpitations Physical Exam Vital Signs: Last Vital Signs Pulse 84 06/13/23 09:49 BP 122/74 06/13/23 09:49 BMI result Body Mass Index 31.7 Const General: cooperative, comfortable, no acute distress, alert, awake and Physically active Nutritional Appearance: obese Orientation/consciousness: patient oriented x3 Limitations: no limitations Neck Neck: Yes trachea midline, Yes supple and Yes no JVD Resp Effort & Inspection: normal respiratory effort Auscultation: diminished lung sounds Cardio Jugular venous distension: no JVD Palpation: normal PMI Rate: regular rate Rhythm: abnormal rhythm with ectopic beats Heart sounds: S1 normal heart sound present and S2 normal heart sound present GI Auscultation: normal bowel sounds Skin General skin exam: no rashes or lesions noted Neuro General: patient oriented x3 and no focal motor deficits Extrem General: Yes no clubbing, cyanosis or edema Psych Appearance: grossly normal Assessment & Plan Assessment & Plan (1) Cardiomyopathy: Code(s): I42.9 - Cardiomyopathy, unspecified Qualifiers: Cardiomyopathy type: unspecified Qualified Code(s): I42.9 - Cardiomyopathy, unspecified Plan: LV systolic dysfunction with cardiomyopathy, nonischemic most likely familial, could be related to atrial fibrillation. Although rate is well controlled. Continue current neurohormonal modulation with metoprolol and Entresto. Importance of neurohormonal modulation was discussed. Signs and symptoms of congestive heart failure were discussed. He is NYHA class 2 and may benefit from phase 2 cardiac rehabilitation. He wants to think about it. Continue CPAP therapy. Encouraged to continue to participate in physical activity as tolerated. (2) Persistent atrial fibrillation: Code(s): I48.19 - Other persistent atrial fibrillation Plan: Atrial fibrillation which is currently rate control. Advised to continue current rate control with metoprolol. Has failed rhythm control approach. Continue full oral anticoagulation Xarelto at 20 mg. Semi annual renal function test and annual CBC should be pursued. Continue CPAP therapy. Will follow up in the clinic in 6 months time, sooner p.r.n.. Thank you for allowing me to partake in his care Orders: Orders Complete Blood Count no Diff Today I48.19 - Other persistent atrial fibrillation Basic Metabolic Panel Today I48.19 - Other persistent atrial fibrillation Coding Level of Care Code Est Pt Level 4 (57363) Diagnoses Cardiomyopathy, unspecified type I42.9 Cardiomyopathy type: unspecified Persistent atrial fibrillation I48.19
== END 2023-06-13 10:05 | disposition home or self-care (01) ==
PROVIDERS: PCP Internal Medicine; Visit Provider Internal Medicine Cardiovascular Disease
DX: I42.9 Cardiomyopathy, unspecified (principal); I48.19 Other persistent atrial fibrillation
CPT/HCPCS: 99214

== ENCOUNTER → 2023-12-12 07:59 | Outpatient (REF) | payer OTHER, SELFPAY ==
--- NOTE | ~2023-12-12 | XR_ITS ---
EXAMINATION: XR CHEST CLINICAL INFORMATION: COPD COMPARISON: 08/04/2020 TECHNIQUE: 2 views of the chest were obtained. FINDINGS: Again seen is a thoracic kyphosis with anterior wedging of multiple midthoracic vertebral bodies. Heart size upper limits of normal. No infiltrates, effusions or lung masses. No evidence of CHF. XR/XR chest 2V IMPRESSION: No acute intrathoracic disease. Electronically signed by: Jose Alfredo Pizarro MD 12/12/2023 12:25 PM EDT
--- NOTE | 2023-12-12 08:03 | CA_ITS ---
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 - Difficult to estimate LVEF in spite of contrast used. Appears moderate to severely reduced. - There is moderately decreased right ventricular systolic function. - Aortic valve sclerosis with possible early stenosis. - There is mild dilatation of the sinuses of Valsalva measuring 4.40 cm, mild dilatation of the ascending aorta measuring 4.00 cm, and mild dilatation of the aortic arch measuring 3.80 cm. - If clinically indicated, consider cardiac MRI for further evaluation. Findings Procedure Information Contrast agent, definity, is being given per protocol without apparent complications. Left Ventricle Normal left ventricular cavity size. There is mildly increased left ventricular wall thickness. Diastolic function is indeterminate on the basis of available data. Difficult to estimate LVEF in spite of contrast used. Appears moderate to severely reduced. Right Ventricle Mildly increased right ventricular cavity size. There is moderately decreased right ventricular systolic function. Atria The left atrium is mildly dilated. The right atrium is moderately dilated. Aortic Valve There is moderate calcification of the aortic valve. There is no aortic valve regurgitation. Possibly, early aortic stenosis. Mitral Valve The mitral valve was not well visualized. There is no mitral valve regurgitation. There is no mitral valve stenosis. Pulmonic Valve The pulmonic valve was not well visualized. Tricuspid Valve There is trace tricuspid valve regurgitation. There is no evidence of pulmonary hypertension. Great Vessels There is mild dilatation of the sinuses of Valsalva measuring 4.40 cm, mild dilatation of the ascending aorta measuring 4.00 cm, and mild dilatation of the aortic arch measuring 3.80 cm. Venous The inferior vena cava is normal in size and collapses greater than 50% with inspiration. Pericardium/Pleural There is no evidence of pericardial effusion. Prior Study Comparison No significant change compared to prior study dated: 12/13/2022. Measurements 2D Linear Measurements IVSd: 1.25 0.6-0.9/0.6-1.0 cm LVIDd: 5.32 3.9-5.3/4.2-5.9 cm LVIDd Index: 2.24 2.4-3.2/2.2-3.1 cm/m2 LVIDs: 4.07 2.0-3.6 cm LVPWd: 1.25 0.7-1.1 cm LA Diam: 5.10 2.7-3.8/3.0-4.0 cm LAIDs Index: 2.15 1.5-2.3 cm/m2 LV Mass: 340.75 67-162/88-224 g LV Mass Index: 143.78 43-95/49-115 g/m2 LVOT Diam: 2.40 3.0+(-)1.3 cm 2D Systolic Function EF 4C: 41.70 >55% EF 2C: 47.70 >55% EF BiP: 48.70 >55% Mitral Valve MV Pk E: 0.50 MV PK A: 0.28 MV Decel Time: 210.00 E/A: 1.80 E'Lateral: 14.70 E'Medial: 9.79 E/E' Med: 5.10 E/E' Lat: 3.40 PHT: 61.00 MVA PHT: 3.61 Decel [place]: 2.39 Aortic Valve AoV Pk Chidi: 1.12 AoV Mn Chidi: 0.81 AoV VTI: 0.22 AoV Pk Grad: 5.00 Aov Mn Grad: 3.00 DARIEL Cont.VTI: 1.82 LVOT LVOT Pk Chidi: 0.47 LVOT Mn Chidi: 0.36 LVOT VTI: 0.09 LVOT Pk Grad: 1.00 LVOT Mn Grad: 1.00 LVOT Diam: 2.40 LVOT Area: 4.52 Diastolic Function MV Pk E: 0.50 MV Pk A: 0.28 E/A: 1.80 E'Medial: 9.79 E/E' Med: 5.10 E' Laterial: 14.70 E/E' Lat: 3.40 Right Ventricle TAPSE (mm): 9.57 TVS' Chidi: 7.62 Great Vessels Aorta Sinus of Valsalva: 4.40 2.0-3.5 cm Ao Asc: 4.00 2.1-3.4 cm Ao Arch: 3.80 Pulmonary Valve PV Pk Chidi: 0.87 Peak PV Grad: 3.00 Updated in Other Vendor System with Status of Final Keegan Harris MD electronically signed on 12/13/2023 9:34:56 AM with status of Final
== END ==
LOC: HO.CARD 07:59
PROVIDERS: PCP Internal Medicine; Visit Provider Internal Medicine Cardiovascular Disease
DX: J44.9 Chronic obstructive pulmonary disease, unspecified (principal); I42.9 Cardiomyopathy, unspecified
CPT/HCPCS: 71046; 93306; Q9957

== ENCOUNTER → 2023-12-12 08:03 | Outpatient (BNV) | payer OTHER, SELFPAY | PROVIDERS: PCP Internal Medicine; Visit Provider Internal Medicine | DX: I35.8 Other nonrheumatic aortic valve disorders (principal); R93.1 Abnormal findings on diagnostic imaging of heart and coronary circulation | CPT/HCPCS: 93306 ==

== ENCOUNTER 2023-12-18 09:22 | Outpatient (AMB) | payer OTHER, SELFPAY ==
--- NOTE | 2023-12-18 09:25 | A.OFFVIS_ITS ---
Vital Signs 12/18/23 09:27 Height 6 ft 3 in Weight 246 lb 14.684 oz BMI 30.9 BP 112/66 Blood Pressure Location Lt brachial Position Sitting Pulse 94 Intake Visit Reasons: 6 mth w/ ekg s/p echo Intake Note: 6 month follow-up with ekg after echo feeling good Research Interviewer Required: No Allergies HAYFEVER Allergy (Severe, Uncoded 12/30/22 09:34) RUNNY NOSE,COUGH Medication List - Last Reconciled 12/18/23 by Vineet Massey MD metoprolol succinate ER 50 mg PO BID rivaroxaban (Xarelto) 20 mg PO DAILY sacubitril-valsartan 49-51 mg (Entresto) 1 tab PO BID tiotropium bromide (Spiriva with HandiHaler) 1 cap inhalation DAILY 30 days HPI Comments Details: Duoglas comes for follow-up. He has been doing well from cardiac perspective. Continues to walk. His LV ejection fraction by recent echocardiogram although limited echocardiogram was around 35%. This is not worsened significantly. He denies any worsening heart failure symptoms of orthopnea, PND, leg edema, abdominal distention, weight gain. Tries to maintain activity level and walks about a mi, gets short of breath as he begins but then stabilizes. Mostly limited by arthritis. Denies any lightheadedness, syncope. No bleeding issues or neurologic events. No palpitations. [facility] Medical History JOSE M (obstructive sleep apnea) COPD (chronic obstructive pulmonary disease) Dyspnea Cardiomyopathy PAF (paroxysmal atrial fibrillation) Surgical History Hx of knee surgery Hx of cardiac cath Family History Father No problems noted. Mother No problems noted. Brother Sudden cardiac Social History Patient Tobacco Use Status: Never used Tobacco Review of Systems Const Denies chills, Denies fatigue, Denies fever(s), Denies frequent falls, Denies weakness, Denies weight gain and Denies weight loss ENT Denies dizziness Card Denies chest pain, Denies leg edema, Denies lightheadedness, Denies palpitations, Denies dyspnea, Denies dyspnea on exertion, Denies orthopnea and Denies other (loss of consciousness) Resp Denies cough, Denies dyspnea and Denies dyspnea on exertion GI Denies hematochezia and Denies change in stool character Musc Denies abnormal gait, Denies muscle weakness, Denies numbness, Denies radiating pain into limb and Denies tingling Neuro Denies abnormal gait, Denies dizziness, Denies frequent falls, Denies numbness, Denies tingling and Denies weakness Endo Denies fatigue and Denies palpitations Physical Exam Vital Signs: Last Vital Signs Pulse 94 12/18/23 09:27 BP 112/66 12/18/23 09:27 BMI result Body Mass Index 30.9 Const General: cooperative, comfortable, no acute distress, alert, awake and Physically active Nutritional Appearance: obese Orientation/consciousness: patient oriented x3 Limitations: no limitations Neck Neck: Yes trachea midline, Yes supple and Yes no JVD Resp Effort & Inspection: normal respiratory effort Auscultation: diminished lung sounds Cardio Jugular venous distension: no JVD Palpation: normal PMI Rate: regular rate Rhythm: abnormal rhythm with ectopic beats Heart sounds: S1 normal heart sound present and S2 normal heart sound present GI Auscultation: normal bowel sounds Skin General skin exam: no rashes or lesions noted Neuro General: patient oriented x3 and no focal motor deficits Extrem General: Yes no clubbing, cyanosis or edema Psych Appearance: grossly normal Office Procedures EKG Details: EKG shows atrial fibrillation with Q-waves in lead 3 and AVF most likely due to body habitus 32673-Roatsrxfrwfvxersu, Complete Assessment & Plan Assessment & Plan (1) Cardiomyopathy: Code(s): I42.9 - Cardiomyopathy, unspecified Category: Medical Qualifiers: Cardiomyopathy type: unspecified Qualified Code(s): I42.9 - Cardiomyopathy, unspecified Plan: Nonischemic cardiomyopathy most likely familiar possibly atrial fibrillation related. Will refer him to [facility] genetic programmed to evaluate for any genetic causes of cardiomyopathy which may help for screening for his family members. This was discussed with him. He is interested in pursuing the same. Continue current neurohormonal modulation with metoprolol Entresto. Has done very well with this happened without any development of heart failure syndrome. Symptoms associated with congestive heart failure were discussed with him. Advised to call me with any new symptoms. No indication for ICD therapy as LV ejection fraction remained stable at about 35%. (2) Persistent atrial fibrillation: Code(s): I48.19 - Other persistent atrial fibrillation Category: Medical Plan: Persistent, rate control atrial fibrillation. Has failed rhythm control approach will continue current metoprolol therapy. Continue full oral anticoagulation, currently on Xarelto therapy. Continue CPAP therapy. Continue maintain exercise as tolerated. Will follow-up with BMP and CBC in near future. Follow up in the clinic in 6 months time, sooner p.r.n.. Thank you for allowing me to partake in his Orders: Orders Basic Metabolic Panel Today I48.19 - Other persistent atrial fibrillation Complete Blood Count no Diff Today I48.19 - Other persistent atrial fibrillation Referrals Genetics Referral I42.9 - Cardiomyopathy, unspecified Coding Level of Care Code Est Pt Level 4 (93054) Diagnoses Cardiomyopathy, unspecified type I42.9 Cardiomyopathy type: unspecified Persistent atrial fibrillation I48.19 CPT Codes EKG - CPT: 24382-Oaaxezqhrwlmpvhwi, Complete ([id number])
[2023-12-18 09:27] VITALS: BP 112/66; PULSE 94; BMI 30.9
== END 2023-12-18 10:03 | disposition home or self-care (01) ==
PROVIDERS: PCP Internal Medicine; Visit Provider Internal Medicine Cardiovascular Disease
DX: I42.9 Cardiomyopathy, unspecified (principal); I48.19 Other persistent atrial fibrillation
CPT/HCPCS: 93010; 99214

== ENCOUNTER 2023-12-18 09:22 | Outpatient (REF) | payer OTHER, SELFPAY ==
[2023-12-18 10:55] LABS: Hemoglobin 15.3 g/dl (14.0-18.0); Mean Corpuscular HGB Conc 33.3 g/dl (31.0-36.0); Mean Corpuscular Hemoglobin 32.1 pg (27.0-33.0); Mean Corpuscular Volume 96.4 fL (80.0-98.0); Mean Platelet Volume 11.6 fL (9.4-12.4); Platelet Count 186 X10*3/uL (160-400); Red Blood Count 4.77 X10*6/uL (4.60-5.80); Red Cell Distribution Width 13.2 % (11.0-16.0); White Blood Count 7.7 X10*3/uL (4.8-10.8)
[2023-12-18 11:50] LABS: Anion Gap 11 (12-20); Blood Urea Nitrogen 16 mg/dL (9-16); Calcium 10.1 mg/dL (8.4-10.2); Carbon Dioxide 22 mmol/L (22-29); Chloride 112 mmol/L (96-108); Estimated Glomerular Filt Rate > 60; Glucose Random 109 mg/dL (60-115); Potassium 4.6 mmol/L (3.3-5.1); Sodium 140 mmol/L (135-145)
== END 2023-12-18 09:23 | disposition home or self-care (01) ==
LOC: HO.LAB 09:22
PROVIDERS: PCP Internal Medicine; Visit Provider Internal Medicine Cardiovascular Disease
DX: I48.91 Unspecified atrial fibrillation (principal); I42.9 Cardiomyopathy, unspecified
CPT/HCPCS: 36415; 80048; 85027; 93005

== ENCOUNTER 2024-01-09 09:40 | Outpatient (AMB) | payer OTHER, SELFPAY ==
[2024-01-09 09:47] VITALS: BP 118/60; PULSE 82; O2SAT 96; BMI 31.4
--- NOTE | 2024-01-09 09:47 | MHC.OFFVIS ---
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 The symptoms have progressively gotten worse. He was evaluated by Cardiology and felt to be stable from a cardiac standpoint. Therefore the patient is referred to Pulmonary. Apparently back around 3 or more years ago the patient did undergo pulmonary function studies at [facility] which I personally reviewed demonstrating a mild degree of COPD. He feels that his symptoms have gotten worse from then in would be surprised if he has worsening COPD. He has been a lifelong nonsmoker. 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 He also has mold in the basement although he does not feel that does bothering him. He denies any other exposures to any fumes or toxins at this time. He has been on amiodarone now for some time due to his cardiac history. He has been on a small dose and denies any liver disease or any thyroid dysfunction. The patient denies any significant cough at this time. At this point will try to start a bronchodilator that will not affect his cardiac status. Therefore long-acting muscarinic antagonist may be a good option. The patient will have repeat PFTs and chest x-ray in with follow-up after that. 06/17/2021 the patient is here for pulmonary follow-up visit. The patient has been doing well from a respiratory status. He continues uses Incruse with good effect. He has may complaining of a dry mouth. He also states that he does have daytime drowsiness. His [place] score is elevated 9/24. He does take a nap in the afternoon. The patient denies any headaches. He did have a sleep study back in 2014 that was personally by me demonstrating mild sleep apnea. The patient has a cardiomyopathy and also atrial fibrillation. Now he is more symptomatic after weight gain. Therefore he likely has worsening sleep apnea. Will have to re-evaluate that. In the meantime the dryness of the mouth may be due to the Incruse. But, he needs to start rinsing his mouth after using his inhaler. 11/02/2021 the patient is here for a pulmonary follow-up visit. The patient has been going in and out of atrial fibrillation. He did have follow-up with electrophysiology and they discussed the possibility of an ablation. The opted on not having an ablation at this time. He is also off the amiodarone. Denies any significant palpitations or shortness of breath. Still having issues with daytime drowsiness. With an [place] score of 10/24. He did undergo sleep study demonstrating qpja-mq-[id number] sleep apnea with an AHI of 12.5 events an hour. The patient also has hypoxic with a pulse ox less than 88% for more than 15 minutes. We talked about his underlying cardiomyopathy and atrial fibrillation the patient is agreeable to starting CPAP therapy at this time. Will send a prescription to a local [employer] company in order for him to be set up. He continues with respiratory therapy with good effect. Has not required any prednisone or any rescue therapy. Overall he is doing well. 03/09/2022 the patient is here for a pulmonary follow-up visit. Overall the patient has been doing well. He does have underlying COPD and has been using his Incruse with good effect. At some point he forgot it when he went on vacation notice that his breathing got worse. Therefore now he realizes that he needs to continue using. In meantime he has struggle with CPAP. He has tried multiple masks and try to go back to using it. However, after 3 months he has realized that he is not going to be able to tolerated. Therefore he is going to return to the [employer] company. From a cardiac standpoint the patient is doing well he does have underlying atrial fibrillation cardiomyopathy. He has been monitor closely. He understands that the CPAP therapy will be helping minimize some of the cardiovascular risks. As an alternative, we did talk about positional therapy. The patient can also consider a dental device. Otherwise patient is without any other complaints. 12/30/2022 the patient is here for a pulmonary follow-up visit. The patient overall is doing about the same. His cough is better. He feels the Spiriva works better than the Incruse. Therefore he will continue the Spiriva at this time. He does not use a rescue inhaler. The patient does have atrial fibrillation so we do try to minimize the beta agonist effect. The patient has been sleeping fairly well. He denies any significant daytime drowsiness. The patient does have a history of sleep apnea. He struggle with CPAP for a long time. We did do an overnight oximetry at some point last year which actually demonstrated that he desaturated down to 78% and spent 20 minutes below 88%. Explained to the patient that if he continues to desaturate it will be increased risk for his cardiovascular condition. Therefore will do the overnight study again. If he does desaturate significantly I will emphasized the need for oxygen supplementation. The patient was supposed to have a chest x-ray. Although he did have it done. Therefore output another x-ray ordered for next year unless he does not feel well he can not have an x-ray done at any point as the order is active at this time. 01/09/2024 the patient is here for a pulmonary follow-up visit. Overall he is doing okay. He does complaint of increasing cough chest congestion. [id number]-sr-rabtbimg severity. Seems to be getting worse. Also some dyspnea on exertion. He has been on Spiriva for some time. At this point we can look to try to maximize his respiratory therapy by switching over to Trelegy. He does have a history of atrial fibrillation so therefore he understands that if he does develop increasing heart rate or atrial fibrillation. The Trelegy. I do believe the Trelegy be a better option for him to treat his chronic bronchitis. He also had a chest x-ray recently and I personally reviewed it. Seems to have some congestion primarily affecting his right base. On previous x-rays they seem to be very similar still with persistent issues to the right lower lobe area. The patient has not had pulmonary function studies in several years therefore will have him get some PFTs. He also uses a cane and a walker is all provide him with a handicap placard in order for him to use effectively. Will have the patient return in 4-6 months. At that point will review his PFTs and also review his response to therapy. I did ask him to try the Trelegy just for a month and then go back to Spiriva. However, if he does want to stay on the Trelegy he should to call the office and I will send him another script. [facility] Medical History JOSE M (obstructive sleep apnea) COPD (chronic obstructive pulmonary disease) Dyspnea Cardiomyopathy PAF (paroxysmal atrial fibrillation) Surgical History Hx of knee surgery Hx of cardiac cath Family History Father No problems noted. Mother No problems noted. Brother Sudden cardiac Social History Patient Tobacco Use Status: Never used Tobacco Review of Systems Const Denies chills, Denies fatigue, Denies fever(s), Denies frequent falls, Denies snoring, Denies weakness and Denies weight loss ENT Denies dizziness Card Denies chest pain, Denies leg edema, Denies lightheadedness, Denies palpitations, Denies dyspnea, Denies dyspnea on exertion and Denies orthopnea Resp Reports chest congestion, Reports cough, Denies dyspnea, Denies dyspnea on exertion and Denies snoring GI Denies hematochezia and Denies change in stool character Musc Denies abnormal gait, Denies muscle weakness, Denies numbness, Denies radiating pain into limb and Denies tingling Neuro Denies abnormal gait, Denies dizziness, Denies frequent falls, Denies numbness, Denies tingling and Denies weakness Endo Denies fatigue and Denies palpitations Physical Exam Vital Signs: Last Vital Signs Pulse 82 01/09/24 09:47 BP 118/60 01/09/24 09:47 Pulse Ox 96 01/09/24 09:47 Oxygen Delivery Method Room Air 01/09/24 09:47 BMI result Body Mass Index 31.4 Const General: cooperative, comfortable, no acute distress, alert, awake and Physically active Nutritional Appearance: obese Orientation/consciousness: patient oriented x3 Limitations: no limitations Neck Neck: Yes supple and Yes no JVD Chest Chest palpation & inspection: normal inspection of the chest Resp Effort & Inspection: normal respiratory effort Auscultation: diminished lung sounds Cardio Rate: regular rate Rhythm: abnormal rhythm with ectopic beats Heart sounds: S1 normal heart sound present and S2 normal heart sound present GI Palpation (GI): Soft to palpation Auscultation: normal bowel sounds Skin General skin exam: no rashes or lesions noted Neuro General: patient oriented x3 Extrem General: Yes no clubbing, cyanosis or edema Psych Appearance: grossly normal Results Reviewed Results Reviewed: [address] [address] XRay Report Signed Patient: Douglas Amor MR#: [id number] : 1945 Acct:[id number] Age/Sex: 78 / M ADM Date: 12/12/23 Loc: .CARD Attending Dr: Vineet Massey MD Ordering Physician: Doug Sánchez MD Date of Service: 12/12/23 Procedure(s): XR chest 2V Accession Number(s): [id number] cc: Doug Sánchez MD; Piter Bai MD~ EXAMINATION: XR CHEST CLINICAL INFORMATION: COPD COMPARISON: 08/04/2020 TECHNIQUE: 2 views of the chest were obtained. FINDINGS: Again seen is a thoracic kyphosis with anterior wedging of multiple midthoracic vertebral bodies. Heart size upper limits of normal. No infiltrates, effusions or lung masses. No evidence of CHF. XR/XR chest 2V IMPRESSION: No acute intrathoracic disease. 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: Assessment & Plan Assessment & Plan (1) COPD (chronic obstructive pulmonary disease): Code(s): J44.9 - Chronic obstructive pulmonary disease, unspecified Category: Medical Qualifiers: COPD type: chronic bronchitis Chronic bronchitis type: simple Qualified Code(s): J41.0 - Simple chronic bronchitis (2) Dyspnea: Code(s): R06.00 - Dyspnea, unspecified Category: Medical Qualifiers: Dyspnea type: dyspnea on exertion Qualified Code(s): R06.00 - Dyspnea, unspecified (3) Cardiomyopathy: Code(s): I42.9 - Cardiomyopathy, unspecified Category: Medical Qualifiers: Cardiomyopathy type: unspecified Qualified Code(s): I42.9 - Cardiomyopathy, unspecified Plan hold Spiriva handihaler daily start Trelegy x 1 month, then return to Spiriva Weight management Increase exercise chest x-ray ok PFTs F/U 6 months Orders: Orders PFT pulmonary function test Today J41.0 - Simple chronic bronchitis Medications: New ofggphnxjru-kkbcxecrc-tjmwhilg 100-62.5-25 mcg (Trelegy Ellipta) 1 inh inhalation DAILY 30 days 60 ea 0RF J44.9 - Chronic obstructive pulmonary disease, unspecified Coding Level of Care Code Est Pt Level 4 (92470) Diagnoses Simple chronic bronchitis J41.0 COPD type: chronic bronchitis Chronic bronchitis type: simple Dyspnea on exertion R06.00 Dyspnea type: dyspnea on exertion Cardiomyopathy, unspecified type I42.9 Cardiomyopathy type: unspecified Time Spent (min) 16
== END 2024-01-09 10:05 | disposition home or self-care (01) ==
PROVIDERS: PCP Internal Medicine; Visit Provider Hospitalist
DX: J41.0 Simple chronic bronchitis (principal); R06.00 Dyspnea, unspecified; I42.9 Cardiomyopathy, unspecified
CPT/HCPCS: 99214

== ENCOUNTER → 2024-01-09 09:40 | Outpatient (BNVA) | payer OTHER, SELFPAY | PROVIDERS: PCP Internal Medicine; Visit Provider Hospitalist ==

== ENCOUNTER 2024-01-29 09:46 | Outpatient (AMB) | payer OTHER, SELFPAY ==
[2024-01-29 09:56] VITALS: BMI 31.4
--- NOTE | 2024-01-29 09:56 | MHC.OFFVIS ---
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 Patient reorts that he has had ongoing knee pain for about 10 years now. He has had history of a left Menisectomy and injections in both of his knees about 7 years ago. The injections were helpful, but he feels that he overdid it with activity after injections. The right knee is more symptomatic than the left. 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 Patient reorts that he has had ongoing knee pain for about 10 years now. He has had history of a left Menisectomy and injections in both of his knees about 7 years ago. The injections were helpful, but he feels that he overdid it with activity after injections. The right knee is more symptomatic than the left. 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 [facility] Medical History JOSE M (obstructive sleep apnea) COPD (chronic obstructive pulmonary disease) Dyspnea Cardiomyopathy PAF (paroxysmal atrial fibrillation) Surgical History Hx of knee surgery Hx of cardiac cath Family History Father No problems noted. Mother No problems noted. Brother Sudden cardiac Social History Patient Tobacco Use Status: Never used Tobacco Physical Exam Vital Signs: BMI result Body Mass Index 31.4 Extrem Other: Tenderness to palpation medial compartment bilaterally 5-125 degrees range of motion bilaterally Mild varus malalignment bilaterally Mild gait antalgia Office Procedures Joint Injection/Aspiration Joint Injection/Aspiration Details: Injected 1 mL of Decadron and 3 mL 1% lidocaine and 3 mL of 0.25% Marcaine. Site was prepped using aseptic technique. Patient tolerated the procedure well. Primary Site: right knee Secondary Site: left knee Approach Used: anterolateral Coding - Large joint - Glenohumeral/Tronchanteric Bursa/Intraarticular Procedure code (CPT) selection complete Assessment & Plan Assessment & Plan (1) Bilateral primary osteoarthritis of knee: Code(s): M17.0 - Bilateral primary osteoarthritis of knee Category: Medical Plan: This is a 78-year-old gentleman with severe bilateral knee osteoarthritis. He is not an ideal candidate for arthroplasty and he is not interested in arthroplasty. He has had injections in the past that were beneficial and I injected his bilateral knees today. Coding Level of Care Code New Pt Level 3 (28915) Diagnoses Bilateral primary osteoarthritis of knee M17.0 CPT Codes Coding - Large joint: 68201 - Large joint ([id number]) Coding - Joint 7: 28642 - Glenohumeral/Tronchanteric Bursa/Intraarticular ([id number])
== END 2024-01-29 10:57 | disposition home or self-care (01) ==
PROVIDERS: PCP Internal Medicine; Visit Provider Orthopaedic Surgery
DX: M17.0 Bilateral primary osteoarthritis of knee (principal)
CPT/HCPCS: 20610; 99203

== ENCOUNTER → 2024-01-29 09:46 | Outpatient (BNVA) | payer OTHER, SELFPAY | PROVIDERS: PCP Internal Medicine; Visit Provider Orthopaedic Surgery | DX: M17.0 Bilateral primary osteoarthritis of knee (principal) | CPT/HCPCS: 20610; J0665; J1100; J2003 ==

== ENCOUNTER 2024-02-21 09:52 | Outpatient (REF) | payer OTHER, SELFPAY ==
--- NOTE | 2024-02-21 09:55 | PFT_ITS ---
Flows: FEV1: 74 % of predicted at 2.42 L FVC: 84 % of predicted at 3.70 L FEV1/FVC: 65 % Bronchodilator response: Absent Volumes: Total lung capacity: 72 % of predicted at 5.66 L Residual volume: 64 % of predicted at 1.93 L Slow vital capacity: 81 % of predicted at 3.74 L Expiratory reserve volume: 50 % of predicted at 0.71 L Diffusion capacity: Mildly decreased. Impression: Combined moderate obstructive and restrictive ventilatory defects with no bronchodilator response. Decreased expiratory reserve volume suggests extrathoracic restriction likely secondary to abdominal obesity. Decreased diffusion capacity suggests emphysema. MTDD
== END 2024-02-21 09:53 | disposition home or self-care (01) ==
LOC: HO.RESP 09:52
PROVIDERS: PCP Internal Medicine; Visit Provider Hospitalist
DX: J41.0 Simple chronic bronchitis (principal)
CPT/HCPCS: 94010; 94640; 94727; 94729

== ENCOUNTER → 2024-02-21 09:55 | Outpatient (BNV) | payer OTHER, SELFPAY | PROVIDERS: PCP Internal Medicine; Visit Provider Internal Medicine Pulmonary Disease | DX: J41.0 Simple chronic bronchitis (principal) | CPT/HCPCS: 94060; 94727; 94729 ==

== ENCOUNTER 2024-06-25 08:37 | Outpatient (AMB) | payer OTHER, SELFPAY ==
--- NOTE | 2024-06-25 08:43 | MHC.OFFVIS ---
Vital Signs 06/25/24 08:44 Height 6 ft 3 in Weight 257 lb 15.053 oz BMI 32.2 BP 120/76 Blood Pressure Location Lt brachial Position Sitting Pulse 59 Intake Visit Reasons: 6mth Intake Note: 6 month follow=up c/o sob with activity Tax Compliance Officer Required: No Allergies HAYFEVER Allergy (Severe, Uncoded 01/09/24 09:49) RUNNY NOSE,COUGH Medication List - Last Reconciled 06/25/24 by Vineet Massey MD [id number] 100-62.5-25 mcg (Trelegy Ellipta) 1 inh inhalation DAILY 30 days metoprolol succinate ER 50 mg PO BID rivaroxaban (Xarelto) 20 mg PO DAILY sacubitril-valsartan 49-51 mg (Entresto) 1 tab PO BID tiotropium bromide (Spiriva with HandiHaler) 1 cap inhalation DAILY 30 days HPI Comments Details: Lan comes for follow-up. He continues to have exertional shortness of breath but has not worsened. Denies any clear orthopnea, PND, leg edema. Takes all his medications. No prolonged palpitation irregular heartbeat. No lightheadedness, syncope. Takes all his medications regularly. No bleeding issues or neurologic events [facility] Medical History JOSE M (obstructive sleep apnea) COPD (chronic obstructive pulmonary disease) Dyspnea Cardiomyopathy PAF (paroxysmal atrial fibrillation) Surgical History Hx of knee surgery Hx of cardiac cath Family History Father No problems noted. Mother No problems noted. Brother Sudden cardiac Social History Patient Tobacco Use Status: Never used Tobacco Review of Systems Const Denies chills, Denies fatigue, Denies fever(s), Denies frequent falls, Denies weakness, Denies weight gain and Denies weight loss ENT Denies dizziness Card Denies chest pain, Denies leg edema, Denies lightheadedness, Denies palpitations, Denies dyspnea, Denies dyspnea on exertion, Denies orthopnea and Denies other (loss of consciousness) Resp Denies cough, Denies dyspnea and Denies dyspnea on exertion GI Denies hematochezia and Denies change in stool character Musc Denies abnormal gait, Denies muscle weakness, Denies numbness, Denies radiating pain into limb and Denies tingling Neuro Denies abnormal gait, Denies dizziness, Denies frequent falls, Denies numbness, Denies tingling and Denies weakness Endo Denies fatigue and Denies palpitations Physical Exam Vital Signs: Last Vital Signs Pulse 59 06/25/24 08:44 BP 120/76 06/25/24 08:44 BMI result Body Mass Index 32.2 Const General: cooperative, comfortable, no acute distress, alert, awake and Physically active Nutritional Appearance: obese Orientation/consciousness: patient oriented x3 Limitations: no limitations Neck Neck: Yes trachea midline, Yes supple and Yes no JVD Resp Effort & Inspection: normal respiratory effort Auscultation: diminished lung sounds Cardio Jugular venous distension: no JVD Palpation: normal PMI Rate: regular rate Rhythm: abnormal rhythm with ectopic beats Heart sounds: S1 normal heart sound present and S2 normal heart sound present GI Auscultation: normal bowel sounds Skin General skin exam: no rashes or lesions noted Neuro General: patient oriented x3 and no focal motor deficits Extrem General: Yes no clubbing, cyanosis or edema Psych Appearance: grossly normal Assessment & Plan Assessment & Plan (1) Cardiomyopathy: Code(s): I42.9 - Cardiomyopathy, unspecified Category: Medical Qualifiers: Cardiomyopathy type: unspecified Qualified Code(s): I42.9 - Cardiomyopathy, unspecified Plan: Cardiomyopathy which has remained stable with moderate LV systolic dysfunction although limited echocardiogram. Strong family history for cardiomyopathy and congestive heart failure as well. No clinical signs of congestive heart failure. He does have exertional shortness of breath which is probably related to both underlying lung disease as well as obesity as well as reduced functional capacity with cardiomyopathy and atrial fibrillation. Continue neurohormonal modulation with metoprolol and Entresto therapy. Signs and symptoms of heart failure were discussed. Will refer him for genetic counseling to evaluate for any positive genetic testing that would help for screening for family. Otherwise suggested his kids to have echocardiogram and EKG. Follow-up echocardiogram 6 months time. (2) Persistent atrial fibrillation: Code(s): I48.19 - Other persistent atrial fibrillation Category: Medical Plan: Persistent atrial fibrillation has failed rhythm control approach. Continue metoprolol therapy for rate control. Continue full oral anticoagulation, currently on Xarelto 20 mg daily. Semi annual renal function test to be pursued. Encouraged to continue to participate in physical activity as tolerated. Avoidance of stimulants was discussed. Follow up in the clinic in 6 months time, sooner p.r.n.. Thank you for allowing me to partake in his care Coding Level of Care Code Est Pt Level 4 (91821) Complex EM visit Add On G2211 Diagnoses Cardiomyopathy, unspecified type I42.9 Cardiomyopathy type: unspecified Persistent atrial fibrillation I48.19
[2024-06-25 08:44] VITALS: BP 120/76; PULSE 59; BMI 32.2
== END 2024-06-25 09:06 | disposition home or self-care (01) ==
LOC: HO.HCS 08:37
PROVIDERS: PCP Internal Medicine; Visit Provider Internal Medicine Cardiovascular Disease
DX: I42.9 Cardiomyopathy, unspecified (principal); I48.19 Other persistent atrial fibrillation
CPT/HCPCS: 99214

== ENCOUNTER → 2024-06-25 08:37 | Outpatient (BNVA) | payer OTHER, SELFPAY | PROVIDERS: PCP Internal Medicine; Visit Provider Internal Medicine Cardiovascular Disease ==

== ENCOUNTER 2024-07-10 09:34 | Outpatient (AMB) | payer OTHER, SELFPAY ==
[2024-07-10 09:44] VITALS: BP 107/62; PULSE 82; O2SAT 93; BMI 32.2
--- NOTE | 2024-07-10 09:44 | MHC.OFFVIS ---
Vital Signs 07/10/24 09:44 Height 6 ft 3 in Weight 258 lb BMI 32.2 BP 107/62 Blood Pressure Location Rt brachial Pulse 82 Pulse Source Doppler Pulse Oximetry (%) 93 Oxygen Delivery Method Room Air Intake Visit Reasons: jackie Allergies HAYFEVER Allergy (Severe, Uncoded 01/09/24 09:49) RUNNY NOSE,COUGH HPI Comments Details: The patient is a 79-year-old gentleman with a known history of cardiomyopathy and atrial fibrillation who apparently has been having worsening dyspnea on exertion for the last year her so. The symptoms have progressively gotten worse. He was evaluated by Cardiology and felt to be stable from a cardiac standpoint. Therefore the patient is referred to Pulmonary. Apparently back around 3 or more years ago the patient did undergo pulmonary function studies at [facility] which I personally reviewed demonstrating a mild degree of COPD. He feels that his symptoms have gotten worse from then in would be surprised if he has worsening COPD. He has been a lifelong nonsmoker. 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 He also has mold in the basement although he does not feel that does bothering him. He denies any other exposures to any fumes or toxins at this time. He has been on amiodarone now for some time due to his cardiac history. He has been on a small dose and denies any liver disease or any thyroid dysfunction. The patient denies any significant cough at this time. At this point will try to start a bronchodilator that will not affect his cardiac status. Therefore long-acting muscarinic antagonist may be a good option. The patient will have repeat PFTs and chest x-ray in with follow-up after that. 06/17/2021 the patient is here for pulmonary follow-up visit. The patient has been doing well from a respiratory status. He continues uses Incruse with good effect. He has may complaining of a dry mouth. He also states that he does have daytime drowsiness. His Howells score is elevated 9/24. He does take a nap in the afternoon. The patient denies any headaches. He did have a sleep study back in 2014 that was personally by me demonstrating mild sleep apnea. The patient has a cardiomyopathy and also atrial fibrillation. Now he is more symptomatic after weight gain. Therefore he likely has worsening sleep apnea. Will have to re-evaluate that. In the meantime the dryness of the mouth may be due to the Incruse. But, he needs to start rinsing his mouth after using his inhaler. 11/02/2021 the patient is here for a pulmonary follow-up visit. The patient has been going in and out of atrial fibrillation. He did have follow-up with electrophysiology and they discussed the possibility of an ablation. The opted on not having an ablation at this time. He is also off the amiodarone. Denies any significant palpitations or shortness of breath. Still having issues with daytime drowsiness. With an Howells score of 10/24. He did undergo sleep study demonstrating pumt-[id number] sleep apnea with an AHI of 12.5 events an hour. The patient also has hypoxic with a pulse ox less than 88% for more than 15 minutes. We talked about his underlying cardiomyopathy and atrial fibrillation the patient is agreeable to starting CPAP therapy at this time. Will send a prescription to a local [employer] company in order for him to be set up. He continues with respiratory therapy with good effect. Has not required any prednisone or any rescue therapy. Overall he is doing well. 03/09/2022 the patient is here for a pulmonary follow-up visit. Overall the patient has been doing well. He does have underlying COPD and has been using his Incruse with good effect. At some point he forgot it when he went on vacation notice that his breathing got worse. Therefore now he realizes that he needs to continue using. In meantime he has struggle with CPAP. He has tried multiple masks and try to go back to using it. However, after 3 months he has realized that he is not going to be able to tolerated. Therefore he is going to return to the [employer] company. From a cardiac standpoint the patient is doing well he does have underlying atrial fibrillation cardiomyopathy. He has been monitor closely. He understands that the CPAP therapy will be helping minimize some of the cardiovascular risks. As an alternative, we did talk about positional therapy. The patient can also consider a dental device. Otherwise patient is without any other complaints. 12/30/2022 the patient is here for a pulmonary follow-up visit. The patient overall is doing about the same. His cough is better. He feels the Spiriva works better than the Incruse. Therefore he will continue the Spiriva at this time. He does not use a rescue inhaler. The patient does have atrial fibrillation so we do try to minimize the beta agonist effect. The patient has been sleeping fairly well. He denies any significant daytime drowsiness. The patient does have a history of sleep apnea. He struggle with CPAP for a long time. We did do an overnight oximetry at some point last year which actually demonstrated that he desaturated down to 78% and spent 20 minutes below 88%. Explained to the patient that if he continues to desaturate it will be increased risk for his cardiovascular condition. Therefore will do the overnight study again. If he does desaturate significantly I will emphasized the need for oxygen supplementation. The patient was supposed to have a chest x-ray. Although he did have it done. Therefore output another x-ray ordered for next year unless he does not feel well he can not have an x-ray done at any point as the order is active at this time. 01/09/2024 the patient is here for a pulmonary follow-up visit. Overall he is doing okay. He does complaint of increasing cough chest congestion. Gqey-we-eoukevzy severity. Seems to be getting worse. Also some dyspnea on exertion. He has been on Spiriva for some time. At this point we can look to try to maximize his respiratory therapy by switching over to Trelegy. He does have a history of atrial fibrillation so therefore he understands that if he does develop increasing heart rate or atrial fibrillation. The Trelegy. I do believe the Trelegy be a better option for him to treat his chronic bronchitis. He also had a chest x-ray recently and I personally reviewed it. Seems to have some congestion primarily affecting his right base. On previous x-rays they seem to be very similar still with persistent issues to the right lower lobe area. The patient has not had pulmonary function studies in several years therefore will have him get some PFTs. He also uses a cane and a walker is all provide him with a handicap placard in order for him to use effectively. Will have the patient return in 4-6 months. At that point will review his PFTs and also review his response to therapy. I did ask him to try the Trelegy just for a month and then go back to Spiriva. However, if he does want to stay on the Trelegy he should to call the office and I will send him another script. 07/10/2024 the patient is here for a pulmonary follow-up visit. Overall he is doing well. He continues uses respiratory therapy as as prescribed. Still has dyspnea on exertion. Azko-wq-jzyjzypa severity. He is switch over to Trelegy and seems to be helpful and therefore he has continued it. The patient did have a chest x-ray which I personally reviewed. Appears to have persistent kyphosis. Limited lung volumes. Will go ahead and repeat a overnight oximetry to assess his oxygen needs. Otherwise follow-up in a year's time. If he has not issues prior to this he will call for an earlier assessment. [facility] Medical History JACKIE (obstructive sleep apnea) COPD (chronic obstructive pulmonary disease) Dyspnea Cardiomyopathy PAF (paroxysmal atrial fibrillation) Surgical History Hx of knee surgery Hx of cardiac cath Family History Father No problems noted. Mother No problems noted. Brother Sudden cardiac Social History Patient Tobacco Use Status: Never used Tobacco Review of Systems Const Denies chills, Denies fatigue, Denies fever(s), Denies frequent falls, Denies snoring, Denies weakness and Denies weight loss ENT Denies dizziness Card Denies chest pain, Denies leg edema, Denies lightheadedness, Denies palpitations, Denies dyspnea, Denies dyspnea on exertion and Denies orthopnea Resp Reports chest congestion, Reports cough, Denies dyspnea, Denies dyspnea on exertion and Denies snoring GI Denies hematochezia and Denies change in stool character Musc Denies abnormal gait, Denies muscle weakness, Denies numbness, Denies radiating pain into limb and Denies tingling Neuro Denies abnormal gait, Denies dizziness, Denies frequent falls, Denies numbness, Denies tingling and Denies weakness Endo Denies fatigue and Denies palpitations Physical Exam Vital Signs: Last Vital Signs Pulse 82 07/10/24 09:44 BP 107/62 07/10/24 09:44 Pulse Ox 93 04/02/25 09:44 Oxygen Delivery Method Room Air 07/10/24 09:44 BMI result Body Mass Index 32.2 Const General: cooperative, comfortable, no acute distress, alert, awake and Physically active Nutritional Appearance: obese Orientation/consciousness: patient oriented x3 Limitations: no limitations Neck Neck: Yes supple Chest Chest palpation & inspection: normal inspection of the chest Resp Effort & Inspection: normal respiratory effort Auscultation: diminished lung sounds Cardio Rate: regular rate Rhythm: abnormal rhythm with ectopic beats Heart sounds: S1 normal heart sound present and S2 normal heart sound present GI Palpation (GI): Soft to palpation Auscultation: normal bowel sounds Skin General skin exam: no rashes or lesions noted Neuro General: patient oriented x3 Extrem General: Yes no clubbing, cyanosis or edema Psych Appearance: grossly normal Assessment & Plan Assessment & Plan (1) COPD (chronic obstructive pulmonary disease): Code(s): J44.9 - Chronic obstructive pulmonary disease, unspecified Category: Medical Qualifiers: COPD type: chronic bronchitis Chronic bronchitis type: simple Qualified Code(s): J41.0 - Simple chronic bronchitis (2) Dyspnea: Code(s): R06.00 - Dyspnea, unspecified Category: Medical Qualifiers: Dyspnea type: dyspnea on exertion Qualified Code(s): R06.00 - Dyspnea, unspecified (3) Cardiomyopathy: Code(s): I42.9 - Cardiomyopathy, unspecified Category: Medical Qualifiers: Cardiomyopathy type: unspecified Qualified Code(s): I42.9 - Cardiomyopathy, unspecified Plan continue Trelegy Weight management Increase exercise Overnight oximetry on RA F/U 6-12 months Orders: Orders Overnight Pulse Oximetry Today J41.0 - Simple chronic bronchitis Coding Level of Care Code Est Pt Level 4 (29953) Diagnoses Simple chronic bronchitis J41.0 COPD type: chronic bronchitis Chronic bronchitis type: simple Dyspnea on exertion R06.00 Dyspnea type: dyspnea on exertion Cardiomyopathy, unspecified type I42.9 Cardiomyopathy type: unspecified Time Spent (min) 16
== END 2024-07-10 09:58 | disposition home or self-care (01) ==
LOC: HO.HPS 09:35
PROVIDERS: PCP Internal Medicine; Visit Provider Hospitalist
DX: J41.0 Simple chronic bronchitis (principal); R06.00 Dyspnea, unspecified; I42.9 Cardiomyopathy, unspecified
CPT/HCPCS: 99214

== ENCOUNTER 2024-12-31 10:06 | Outpatient (AMB) | payer OTHER, SELFPAY ==
[2024-12-31 10:13] VITALS: BP 130/80; PULSE 87; BMI 31.4
--- NOTE | 2024-12-31 10:13 | A.OFFVIS_ITS ---
Vital Signs 12/31/24 10:13 Height 6 ft 3 in Weight 251 lb 5.231 oz BMI 31.4 BP 130/80 Blood Pressure Location Lt brachial Position Sitting Pulse 87 Intake Visit Reasons: 6 mth s/p echo Intake Note: 6 month follow-up with ekg feeling good Internal Specialist Required: No Allergies HAYFEVER Allergy (Severe, Uncoded 01/09/24 09:49) RUNNY NOSE,COUGH Medication List - Last Reconciled 12/31/24 by Vineet Massey MD [id number]-[id number] 100-62.5-25 mcg (Trelegy Ellipta) 1 ea PO DAILY metoprolol succinate ER 50 mg PO BID rivaroxaban (Xarelto) 20 mg PO DAILY sacubitril-valsartan 49-51 mg (Entresto) 1 tab PO BID tiotropium bromide (Spiriva with HandiHaler) 1 cap inhalation DAILY 30 days HPI Comments Details: Lan comes for follow-up. He has no new symptoms. Continues to have exertional shortness of breath. Denies any clear orthopnea, PND, leg edema. Uses oxygen at nighttime for nocturnal hypoxemia, could not tolerate CPAP therapy. Denies any prolonged palpitation irregular heartbeat. No lightheadedness, syncope. No exertional chest pain. No bleeding issues or neurologic events. [facility] Medical History JOSE M (obstructive sleep apnea) COPD (chronic obstructive pulmonary disease) Dyspnea Cardiomyopathy PAF (paroxysmal atrial fibrillation) Surgical History Hx of knee surgery Hx of cardiac cath Family History Father No problems noted. Mother No problems noted. Brother Sudden cardiac Social History Patient Tobacco Use Status: Never used Tobacco Review of Systems Const Denies chills, Denies fatigue, Denies fever(s), Denies frequent falls, Denies weakness, Denies weight gain and Denies weight loss ENT Denies dizziness Card Denies chest pain, Denies leg edema, Denies lightheadedness, Denies palpitations, Denies dyspnea, Denies dyspnea on exertion, Denies orthopnea and Denies other (loss of consciousness) Resp Denies cough, Denies dyspnea and Denies dyspnea on exertion GI Denies hematochezia and Denies change in stool character Musc Denies abnormal gait, Denies muscle weakness, Denies numbness, Denies radiating pain into limb and Denies tingling Neuro Denies abnormal gait, Denies dizziness, Denies frequent falls, Denies numbness, Denies tingling and Denies weakness Endo Denies fatigue and Denies palpitations Physical Exam Vital Signs: Last Vital Signs Pulse 87 12/31/24 10:13 BP 130/80 12/31/24 10:13 BMI result Body Mass Index 31.4 Const General: cooperative, comfortable, no acute distress, alert, awake and Physically active Nutritional Appearance: obese Orientation/consciousness: patient oriented x3 Limitations: no limitations Neck Neck: Yes trachea midline, Yes supple and Yes no JVD Resp Effort & Inspection: normal respiratory effort Auscultation: diminished lung sounds Cardio Jugular venous distension: no JVD Palpation: normal PMI Rate: regular rate Rhythm: abnormal rhythm with ectopic beats Heart sounds: S1 normal heart sound present and S2 normal heart sound present GI Auscultation: normal bowel sounds Skin General skin exam: no rashes or lesions noted Neuro General: patient oriented x3 and no focal motor deficits Extrem General: Yes no clubbing, cyanosis or edema Psych Appearance: grossly normal Office Procedures EKG Details: EKG shows atrial fibrillation with aberrant conduction with voltage criteria for LVH with inferior Q-waves most likely due to body habitus [id number], Complete Assessment & Plan Assessment & Plan (1) Cardiomyopathy: Code(s): I42.9 - Cardiomyopathy, unspecified Category: Medical Qualifiers: Cardiomyopathy type: unspecified Qualified Code(s): I42.9 - Cardiomyopathy, unspecified Plan: Nonischemic cardiomyopathy process most likely familial in nature less likely related to AFib as a rate is adequately controlled. Continue maximize Entresto to 97-103 mg b.i.d. as well as continue metoprolol therapy. No signs or symptoms of heart failure at this point time. Follow-up echocardiogram near future. Follow up BMP 1 week after next dose change of Entresto. He understands agrees. Signs and symptoms of heart failure were discussed encouraged to maintain activity level as tolerated. (2) Persistent atrial fibrillation: Code(s): I48.19 - Other persistent atrial fibrillation Category: Medical Plan: Persistent rate control atrial fibrillation who has failed rhythm control approach. Unlikely to pursue rhythm control approach at this point time. Continue metoprolol for rate control. Continue full oral anticoagulation, currently on Xarelto 20 mg daily. Semi annual renal function test should be pursued. Will follow up in the clinic in 6 months time, sooner PRN. Thank you for allowing me to partake in his care Orders: Orders Basic Metabolic Panel 2 Weeks I42.9 - Cardiomyopathy, unspecified CA echo transthorac w con Today I42.9 - Cardiomyopathy, unspecified Complete Blood Count no Diff 2 Weeks I42.9 - Cardiomyopathy, unspecified Medications: New sacubitril-valsartan 97-103 mg (Entresto) 1 tab PO BID 60 tabs 5RF Discontinued sacubitril-valsartan 49-51 mg (Entresto) Discontinued Reason: Doctor's Order 1 tab PO BID 60 tabs 8RF Coding Level of Care Code Est Pt Level 4 (50911) Complex EM visit Add On G2211 Diagnoses Cardiomyopathy, unspecified type I42.9 Cardiomyopathy type: unspecified Persistent atrial fibrillation I48.19 CPT Codes EKG - CPT: 55238-[id number], Complete ([id number])
== END 2024-12-31 10:31 | disposition home or self-care (01) ==
LOC: HO.HCS 10:07
PROVIDERS: PCP Internal Medicine; Visit Provider Internal Medicine Cardiovascular Disease
DX: I42.9 Cardiomyopathy, unspecified (principal); I48.19 Other persistent atrial fibrillation
CPT/HCPCS: 93010; 99214

== ENCOUNTER → 2024-12-31 10:06 | Outpatient (BNVA) | payer OTHER, SELFPAY | PROVIDERS: PCP Internal Medicine; Visit Provider Internal Medicine Cardiovascular Disease | DX: I42.9 Cardiomyopathy, unspecified (principal); I48.19 Other persistent atrial fibrillation; R94.31 Abnormal electrocardiogram [ECG] [EKG] | CPT/HCPCS: 93005 ==

== ENCOUNTER → 2025-01-23 08:37 | Outpatient (REF) | payer OTHER, SELFPAY ==
--- NOTE | 2025-01-23 08:41 | CA_ITS ---
Transthoracic Echocardiogram Patient (Last, First, Middle): Douglas Amor, Gender: M Date of : 1945 Age: 79 Procedure Date: 01/23/2025 Procedure Type: Transthoracic Echocardiogram Location: OP Height: 190.5 cm Weight: 111.13 kg BSA: 2.39 m2 Heart Rate: 78 bpm BP: 132 / 78 mmHg Spark Plug Tester: ALEX Referring MD: Vineet Massey MD Envelope Press Operator: Vineet Massey MD Symptoms: I42.9 - Cardiomyopathy, unspecified Study Quality: Fair ECG Rhythm: Atrial Fibrillation Conclusions: - 1. Technically difficult study despite use of contrast agent 2. Moderate to severe reduction LV EF of 30-35% 3. Moderately reduced RV systolic function 4. Mild aortic stenosis Findings Procedure Information The quality of the study was technically difficult. The study quality is limited by patients body habitus and lung artifact. Left Ventricle Normal left ventricular cavity size. There is normal left ventricular wall thickness. The left ventricular systolic function is moderate to severely decreased. The visually estimated ejection fraction is between 30-35%. Diastolic function is indeterminate on the basis of available data. Right Ventricle The right ventricle was not well visualized. Moderately increased right ventricular cavity size. There is moderately decreased right ventricular systolic function. Atria The left atrium was not well visualized. Interatrial shunt cannot be excluded. The right atrium was not well visualized. Aortic Valve The aortic valve was not well visualized. There is mild calcification of the aortic valve. There is mild aortic valve stenosis. There is no aortic valve regurgitation. Mitral Valve The mitral valve was not well visualized. There is trace mitral valve regurgitation. There is no mitral valve stenosis. Pulmonic Valve The pulmonic valve was not well visualized. Tricuspid Valve The tricuspid valve was not well visualized. Tricuspid regurgitation envelope is inadequate for calculation of right ventricular systolic pressure. Normal right atrial pressure. Great Vessels The aorta was not well visualized. The pulmonary artery was not well visualized. Venous The inferior vena cava is normal in size and collapses greater than 50% with inspiration. Pericardium/Pleural There is no evidence of pericardial effusion. Prior Study Comparison No significant change compared to prior study dated: 12/12/2023. Measurements 2D Linear Measurements IVSd: 0.93 0.6-0.9/0.6-1.0 cm LVIDd: 5.54 3.9-5.3/4.2-5.9 cm LVIDd Index: 2.32 2.4-3.2/2.2-3.1 cm/m2 LVIDs: 4.10 2.0-3.6 cm LA Diam: 4.40 2.7-3.8/3.0-4.0 cm LAIDs Index: 1.84 1.5-2.3 cm/m2 LVOT Diam: 2.60 3.0+(-)1.3 cm 2D Systolic Function EF 4C: 30.00 >55% EF 2C: 32.10 >55% EF BiP: 31.10 >55% Mitral Valve MV Pk E: 0.53 MV PK A: 0.25 MV Decel Time: 190.00 E/A: 2.10 E'Medial: 6.09 E/E' Med: 8.70 PHT: 56.00 MVA PHT: 3.93 Decel [place]: 2.78 Aortic Valve AoV Pk Chidi: 1.27 AoV Mn Chidi: 0.89 AoV VTI: 0.22 AoV Pk Grad: 6.00 Aov Mn Grad: 4.00 DARIEL Cont.VTI: 2.24 LVOT LVOT Pk Chidi: 0.52 LVOT Mn Chidi: 0.34 LVOT VTI: 0.09 LVOT Pk Grad: 1.00 LVOT Mn Grad: 1.00 LVOT Diam: 2.60 LVOT Area: 5.31 Diastolic Function MV Pk E: 0.53 MV Pk A: 0.25 E/A: 2.10 E'Medial: 6.09 E/E' Med: 8.70 Right Ventricle TAPSE (mm): 15.30 TVS' Chidi: 7.40 Tricuspid Valve RA Press: 3.00 Great Vessels Aorta Sinus of Valsalva: 4.20 2.0-3.5 cm Ao Asc: 3.90 2.1-3.4 cm Ao Arch: 3.80 Pulmonary Valve PV Pk Chidi: 0.72 Peak PV Grad: 2.00 Updated in Other Vendor System with Status of Final Vineet Massey MD electronically signed on 01/23/2025 4:03:20 PM with status of Final
[2025-01-23 10:35] LABS: Hematocrit 49.1 % (42.0-52.0); Hemoglobin 15.7 g/dl (14.0-18.0); Mean Corpuscular HGB Conc 32.0 g/dl (31.0-36.0); Mean Corpuscular Hemoglobin 31.6 pg (27.0-33.0); Mean Corpuscular Volume 98.8 fL (80.0-98.0); NRBC Abs Auto 0.000 X10*3/uL (0.0-0.012); NRBC Pct Auto 0.0 /100WBC (0.0-0.2); Platelet Count 196 X10*3/uL (160-400); Red Blood Count 4.97 X10*6/uL (4.60-5.80); White Blood Count 8.6 X10*3/uL (4.8-10.8)
[2025-01-23 11:30] LABS: Anion Gap 12 (12-20); Blood Urea Nitrogen 21 mg/dL (9-16); Calcium 10.2 mg/dL (8.4-10.2); Carbon Dioxide 26 mmol/L (22-29); Chloride 108 mmol/L (96-108); Estimated Glomerular Filt Rate 59; Potassium 5.0 mmol/L (3.3-5.1); Sodium 141 mmol/L (135-145)
== END ==
LOC: HO.CARD 08:37
PROVIDERS: PCP Internal Medicine; Visit Provider Internal Medicine Cardiovascular Disease
DX: I42.9 Cardiomyopathy, unspecified (principal)
CPT/HCPCS: 36415; 80048; 85027; 93306; Q9957

== ENCOUNTER → 2025-01-23 08:41 | Outpatient (BNV) | payer OTHER, SELFPAY | PROVIDERS: PCP Internal Medicine; Visit Provider Internal Medicine Cardiovascular Disease | DX: I35.0 Nonrheumatic aortic (valve) stenosis (principal) | CPT/HCPCS: 93306 ==

== ENCOUNTER 2025-02-13 11:14 | Outpatient (AMB) | payer OTHER, SELFPAY ==
--- NOTE | 2025-02-13 11:16 | MHC.OFFVIS ---
Vital Signs 02/13/25 11:17 Height 6 ft 3 in Weight 257 lb 15.053 oz BMI 32.2 BP 122/80 Blood Pressure Location Lt brachial Position Sitting Pulse 51 Intake Visit Reasons: f/u echo Intake Note: Follow-up after echo feeling ok Electronic Components Assembler Required: No Solar Sales: Solar Sales Present Accompanied by: Spouse Allergies HAYFEVER Allergy (Severe, Uncoded 01/09/24 09:49) RUNNY NOSE,COUGH Medication List - Last Reconciled 02/13/25 by Vineet Massey MD [id number] 100-62.5-25 mcg (Trelegy Ellipta) 1 ea PO DAILY metoprolol succinate ER 50 mg PO BID rivaroxaban (Xarelto) 20 mg PO DAILY sacubitril-valsartan 97-103 mg (Entresto) 1 tab PO BID tiotropium bromide (Spiriva with HandiHaler) 1 cap inhalation DAILY 30 days HPI Comments Details: Douglas comes for follow-up. He is present here with his . He had echocardiogram shows persistent moderately severe LV systolic dysfunction with LVEF of 30-35%. This is not significantly improved on current neurohormonal modulation. He denies any other overt symptoms of heart failure including no symptoms of orthopnea, PND. He has symptoms of fatigue. No symptoms of palpitations, irregular heartbeat. No lightheadedness, syncope. No bleeding issues or neurologic events. [facility] Medical History JOSE M (obstructive sleep apnea) COPD (chronic obstructive pulmonary disease) Dyspnea Cardiomyopathy PAF (paroxysmal atrial fibrillation) Surgical History Hx of knee surgery Hx of cardiac cath Family History Father No problems noted. Mother No problems noted. Brother Sudden cardiac Social History Patient Tobacco Use Status: Never used Tobacco Review of Systems Const Denies chills, Denies fatigue, Denies fever(s), Denies frequent falls, Denies weakness, Denies weight gain and Denies weight loss ENT Denies dizziness Card Denies chest pain, Denies leg edema, Denies lightheadedness, Denies palpitations, Denies dyspnea, Denies dyspnea on exertion, Denies orthopnea and Denies other (loss of consciousness) Resp Denies cough, Denies dyspnea and Denies dyspnea on exertion GI Denies hematochezia and Denies change in stool character Musc Denies abnormal gait, Denies muscle weakness, Denies numbness, Denies radiating pain into limb and Denies tingling Neuro Denies abnormal gait, Denies dizziness, Denies frequent falls, Denies numbness, Denies tingling and Denies weakness Endo Denies fatigue and Denies palpitations Physical Exam Vital Signs: Last Vital Signs Pulse 51 02/13/25 11:17 BP 122/80 02/13/25 11:17 BMI result Body Mass Index 32.2 Const General: cooperative, comfortable, no acute distress, alert, awake and Physically active Nutritional Appearance: obese Orientation/consciousness: patient oriented x3 Limitations: no limitations Neck Neck: Yes trachea midline, Yes supple and Yes no JVD Resp Effort & Inspection: normal respiratory effort Auscultation: diminished lung sounds Cardio Jugular venous distension: no JVD Palpation: normal PMI Rate: regular rate Rhythm: abnormal rhythm with ectopic beats Heart sounds: S1 normal heart sound present and S2 normal heart sound present GI Auscultation: normal bowel sounds Skin General skin exam: no rashes or lesions noted Neuro General: patient oriented x3 and no focal motor deficits Extrem General: Yes no clubbing, cyanosis or edema Psych Appearance: grossly normal Assessment & Plan Assessment & Plan (1) Cardiomyopathy: Code(s): I42.9 - Cardiomyopathy, unspecified Category: Medical Qualifiers: Cardiomyopathy type: unspecified Qualified Code(s): I42.9 - Cardiomyopathy, unspecified Plan: Persistent moderately severe LV systolic dysfunction secondary to 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 This is not improved. He is on currently good neurohormonal modulation with metoprolol as well as full-dose Entresto. No signs or symptoms of heart failure. These were discussed with him. His symptoms of fatigue probably related to his deconditioning as well as underlying cardiomyopathy and atrial fibrillation. Given his persistent LV systolic dysfunction less than 35% risk of ventricular arrhythmias were discussed. Will suggest him to pursue ICD placement for primary prevention. He is agreeable. Will refer him to EPS for the same. Also discussed likelihood of development of heart failure syndrome secondary to pump failure. He understands them well. Advised to call me with any new symptoms. (2) Persistent atrial fibrillation: Code(s): I48.19 - Other persistent atrial fibrillation Category: Medical Plan: Persistent chronic atrial fibrillation has failed rhythm control approach. No other new symptoms related to atrial fibrillation. Currently adequately rate controlled on metoprolol therapy. Continue the same. Continue full oral anticoagulation, currently on Xarelto 20 mg daily. Semi annual renal function test should be pursued. Will follow up in the clinic in 2 and half months time, sooner PRN. Thank you for allowing me to partake in his care Coding Level of Care Code Est Pt Level 4 (90447) Complex EM visit Add On G2211 Diagnoses Cardiomyopathy, unspecified type I42.9 Cardiomyopathy type: unspecified Persistent atrial fibrillation I48.19
[2025-02-13 11:17] VITALS: BP 122/80; PULSE 51; BMI 32.2
== END 2025-02-13 11:39 | disposition home or self-care (01) ==
LOC: HO.HCS 11:15
PROVIDERS: PCP Internal Medicine; Visit Provider Internal Medicine Cardiovascular Disease
DX: I42.9 Cardiomyopathy, unspecified (principal); I48.19 Other persistent atrial fibrillation
CPT/HCPCS: 99214

== ENCOUNTER 2025-04-04 10:50 | Outpatient (AMB) | payer OTHER, SELFPAY ==
[2025-04-04 10:52] VITALS: BP 90/64; PULSE 87; O2SAT 94; BMI 32.9
--- NOTE | 2025-04-04 10:52 | MHC.OFFVIS ---
Vital Signs 04/04/25 10:52 Height 6 ft 3 in Weight 263 lb 7.238 oz BMI 32.9 BP 90/64 Blood Pressure Location Lt brachial Position Sitting Pulse 87 Pulse Source Pulse Oximeter Pulse Oximetry (%) 94 Oxygen Delivery Method Room Air Intake Visit Reasons: Obstructive sleep apnea Lithographers Printer Required: No Water Quality Tester: Water Quality Tester offered & declined Accompanied by: Self / Same As Patient Allergies HAYFEVER Allergy (Severe, Uncoded 01/09/24 09:49) RUNNY NOSE,COUGH HPI Comments Details: The patient is a 79-year-old gentleman with a known history of cardiomyopathy and atrial fibrillation who apparently has been having worsening dyspnea on exertion for the last year her so. The symptoms have progressively gotten worse. He was evaluated by Cardiology and felt to be stable from a cardiac standpoint. Therefore the patient is referred to Pulmonary. Apparently back around 3 or more years ago the patient did undergo pulmonary function studies at [facility] which I personally reviewed demonstrating a mild degree of COPD. He feels that his symptoms have gotten worse from then in would be surprised if he has worsening COPD. He has been a lifelong nonsmoker. 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 He also has mold in the basement although he does not feel that does bothering him. He denies any other exposures to any fumes or toxins at this time. He has been on amiodarone now for some time due to his cardiac history. He has been on a small dose and denies any liver disease or any thyroid dysfunction. The patient denies any significant cough at this time. At this point will try to start a bronchodilator that will not affect his cardiac status. Therefore long-acting muscarinic antagonist may be a good option. The patient will have repeat PFTs and chest x-ray in with follow-up after that. 06/17/2021 the patient is here for pulmonary follow-up visit. The patient has been doing well from a respiratory status. He continues uses Incruse with good effect. He has may complaining of a dry mouth. He also states that he does have daytime drowsiness. His Middlefield score is elevated 9/24. He does take a nap in the afternoon. The patient denies any headaches. He did have a sleep study back in 2014 that was personally by me demonstrating mild sleep apnea. The patient has a cardiomyopathy and also atrial fibrillation. Now he is more symptomatic after weight gain. Therefore he likely has worsening sleep apnea. Will have to re-evaluate that. In the meantime the dryness of the mouth may be due to the Incruse. But, he needs to start rinsing his mouth after using his inhaler. 11/02/2021 the patient is here for a pulmonary follow-up visit. The patient has been going in and out of atrial fibrillation. He did have follow-up with electrophysiology and they discussed the possibility of an ablation. The opted on not having an ablation at this time. He is also off the amiodarone. Denies any significant palpitations or shortness of breath. Still having issues with daytime drowsiness. With an Middlefield score of 10/24. He did undergo sleep study demonstrating [id number] sleep apnea with an AHI of 12.5 events an hour. The patient also has hypoxic with a pulse ox less than 88% for more than 15 minutes. We talked about his underlying cardiomyopathy and atrial fibrillation the patient is agreeable to starting CPAP therapy at this time. Will send a prescription to a local [facility] company in order for him to be set up. He continues with respiratory therapy with good effect. Has not required any prednisone or any rescue therapy. Overall he is doing well. 03/09/2022 the patient is here for a pulmonary follow-up visit. Overall the patient has been doing well. He does have underlying COPD and has been using his Incruse with good effect. At some point he forgot it when he went on vacation notice that his breathing got worse. Therefore now he realizes that he needs to continue using. In meantime he has struggle with CPAP. He has tried multiple masks and try to go back to using it. However, after 3 months he has realized that he is not going to be able to tolerated. Therefore he is going to return to the [facility] company. From a cardiac standpoint the patient is doing well he does have underlying atrial fibrillation cardiomyopathy. He has been monitor closely. He understands that the CPAP therapy will be helping minimize some of the cardiovascular risks. As an alternative, we did talk about positional therapy. The patient can also consider a dental device. Otherwise patient is without any other complaints. 12/30/2022 the patient is here for a pulmonary follow-up visit. The patient overall is doing about the same. His cough is better. He feels the Spiriva works better than the Incruse. Therefore he will continue the Spiriva at this time. He does not use a rescue inhaler. The patient does have atrial fibrillation so we do try to minimize the beta agonist effect. The patient has been sleeping fairly well. He denies any significant daytime drowsiness. The patient does have a history of sleep apnea. He struggle with CPAP for a long time. We did do an overnight oximetry at some point last year which actually demonstrated that he desaturated down to 78% and spent 20 minutes below 88%. Explained to the patient that if he continues to desaturate it will be increased risk for his cardiovascular condition. Therefore will do the overnight study again. If he does desaturate significantly I will emphasized the need for oxygen supplementation. The patient was supposed to have a chest x-ray. Although he did have it done. Therefore output another x-ray ordered for next year unless he does not feel well he can not have an x-ray done at any point as the order is active at this time. 01/09/2024 the patient is here for a pulmonary follow-up visit. Overall he is doing okay. He does complaint of increasing cough chest congestion. Rckp-zh-qqaerhau severity. Seems to be getting worse. Also some dyspnea on exertion. He has been on Spiriva for some time. At this point we can look to try to maximize his respiratory therapy by switching over to Trelegy. He does have a history of atrial fibrillation so therefore he understands that if he does develop increasing heart rate or atrial fibrillation. The Trelegy. I do believe the Trelegy be a better option for him to treat his chronic bronchitis. He also had a chest x-ray recently and I personally reviewed it. Seems to have some congestion primarily affecting his right base. On previous x-rays they seem to be very similar still with persistent issues to the right lower lobe area. The patient has not had pulmonary function studies in several years therefore will have him get some PFTs. He also uses a cane and a walker is all provide him with a handicap placard in order for him to use effectively. Will have the patient return in 4-6 months. At that point will review his PFTs and also review his response to therapy. I did ask him to try the Trelegy just for a month and then go back to Spiriva. However, if he does want to stay on the Trelegy he should to call the office and I will send him another script. 07/10/2024 the patient is here for a pulmonary follow-up visit. Overall he is doing well. He continues uses respiratory therapy as as prescribed. Still has dyspnea on exertion. Focb-md-qfbcwfee severity. He is switch over to Trelegy and seems to be helpful and therefore he has continued it. The patient did have a chest x-ray which I personally reviewed. Appears to have persistent kyphosis. Limited lung volumes. Will go ahead and repeat a overnight oximetry to assess his oxygen needs. Otherwise follow-up in a year's time. If he has not issues prior to this he will call for an earlier assessment. 04/04/2025 the patient is here for pulmonary follow-up visit. He continues to have issues with his cardiac arrhythmia. The patient is working closely with Cardiology. He is looking into getting an ablation. Unfortunately continues to have significant daytime drowsiness with an Middlefield score of 11/24. The patient does have significant cardiovascular risk factors and daytime drowsiness. Therefore, he is agreeable to having a repeat in-lab sleep study at this time. He does have nocturnal hypoxia in addition to that has underlying cardiac arrhythmias so therefore an in-lab study would be appropriate. He has a scheduled ablation for the end of the month of April therefore will request an urgent study to see if we can get him on PAP therapy as soon as possible to minimize the risk of arrhythmia recurrence. [facility] Medical History JOSE M (obstructive sleep apnea) COPD (chronic obstructive pulmonary disease) Dyspnea Cardiomyopathy PAF (paroxysmal atrial fibrillation) Surgical History Hx of knee surgery Hx of cardiac cath Family History Father No problems noted. Mother No problems noted. Brother Sudden cardiac Social History Patient Tobacco Use Status: Never used Tobacco Review of Systems Const Denies chills, Reports daytime sleepiness, Denies fatigue, Denies fever(s), Denies frequent falls, Reports headache(s), Reports snoring, Denies weakness and Denies weight loss ENT Denies dizziness and Reports headache(s) Card Denies chest pain, Denies leg edema, Denies lightheadedness, Reports palpitations, Denies dyspnea, Denies dyspnea on exertion and Denies orthopnea Resp Reports chest congestion, Reports cough, Denies dyspnea, Denies dyspnea on exertion and Reports snoring GI Denies hematochezia and Denies change in stool character Musc Denies abnormal gait, Denies muscle weakness, Denies numbness, Denies radiating pain into limb and Denies tingling Neuro Denies abnormal gait, Denies dizziness, Denies frequent falls, Reports headache(s), Denies numbness, Denies tingling and Denies weakness Endo Denies fatigue and Reports palpitations Physical Exam Vital Signs: Last Vital Signs Pulse 87 04/04/25 10:52 BP 90/64 04/04/25 10:52 Pulse Ox 94 04/04/25 10:52 Oxygen Delivery Method Room Air 04/04/25 10:52 BMI result Body Mass Index 32.9 Const General: cooperative, comfortable, no acute distress, alert, awake and Physically active Nutritional Appearance: obese Orientation/consciousness: patient oriented x3 Limitations: no limitations Neck Neck: Yes supple Chest Chest palpation & inspection: normal inspection of the chest Resp Effort & Inspection: normal respiratory effort Auscultation: diminished lung sounds Cardio Rate: regular rate Rhythm: abnormal rhythm with ectopic beats Heart sounds: S1 normal heart sound present and S2 normal heart sound present GI Palpation (GI): Soft to palpation Auscultation: normal bowel sounds Skin General skin exam: no rashes or lesions noted Neuro General: patient oriented x3 Extrem General: Yes no clubbing, cyanosis or edema Psych Appearance: grossly normal Assessment & Plan Assessment & Plan (1) COPD (chronic obstructive pulmonary disease): Code(s): J44.9 - Chronic obstructive pulmonary disease, unspecified Category: Medical Qualifiers: COPD type: chronic bronchitis Chronic bronchitis type: simple Qualified Code(s): J41.0 - Simple chronic bronchitis (2) Dyspnea: Code(s): R06.00 - Dyspnea, unspecified Category: Medical Qualifiers: Dyspnea type: dyspnea on exertion Qualified Code(s): R06.00 - Dyspnea, unspecified (3) Cardiomyopathy: Code(s): I42.9 - Cardiomyopathy, unspecified Category: Medical Qualifiers: Cardiomyopathy type: unspecified Qualified Code(s): I42.9 - Cardiomyopathy, unspecified (4) JOSE M (obstructive sleep apnea): Code(s): G47.33 - Obstructive sleep apnea (adult) (pediatric) Category: Medical Plan continue Trelegy Weight management Increase exercise rate control WOuld benefit from treating JOSE M prior to EP ablation in lab PSG F/U 3-4 months Orders: Orders RT PSG in-lab sleep study 04/04/25 G47.33 - Obstructive sleep apnea (adult) (pediatric) Coding Level of Care Code Est Pt Level 4 (32322) Diagnoses Simple chronic bronchitis J41.0 COPD type: chronic bronchitis Chronic bronchitis type: simple Dyspnea on exertion R06.00 Dyspnea type: dyspnea on exertion Cardiomyopathy, unspecified type I42.9 Cardiomyopathy type: unspecified JOSE M (obstructive sleep apnea) G47.33 Time Spent (min) 17
== END 2025-04-04 11:17 | disposition home or self-care (01) ==
LOC: HO.HPS 10:51
PROVIDERS: PCP Internal Medicine; Visit Provider Hospitalist
DX: J41.0 Simple chronic bronchitis (principal); R06.00 Dyspnea, unspecified; I42.9 Cardiomyopathy, unspecified; G47.33 Obstructive sleep apnea (adult) (pediatric)
CPT/HCPCS: 99214